=== PATIENT | male | born 1960 | race Caucasian/White ===

== ENCOUNTER 2017-11-10 14:34 | Outpatient (CLI) | payer BC ==
--- NOTE | 2017-11-10 17:22 | XRAY Report ---
TWO VIEW CHEST: 11/10/2017 CLINICAL INDICATION: Productive cough, wheezing. COMPARISON: 07/25/2014 FINDINGS: Frontal and lateral views of the chest demonstrate a normal cardiac silhouette. The lungs are clear. No effusion or pneumothorax is present. IMPRESSION: NO EVIDENCE OF ACUTE CARDIOPULMONARY DISEASE. NO SIGNIFICANT INTERVAL CHANGE. TD: 11/10/2017 15:08
== END 2017-11-10 14:35 | disposition home or self-care (01) ==
LOC: DI.S 14:34
PROVIDERS: ATTEND Nurse Practitioner Family
DX: R05 Cough (principal); R06.2 Wheezing
CPT/HCPCS: 71046

== ENCOUNTER 2018-10-18 08:27 | Emergency (ER) | payer OTHER, BC ==
[2018-10-18] MEDS ORDERED: DEXAMETHASONE 10 MG/ML VIAL PO STA (08:59)
[2018-10-18] MEDS ORDERED: CHERRY SYRUP 10 ML UDC PO ONE (08:59)
[2018-10-18] MEDS ORDERED: KETOROLAC 60 MG/2 ML VIAL IM STA (09:00)
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
[2018-10-18 10:46] VITALS: BP 161/98
== END 2018-10-18 10:46 | disposition home or self-care (01) ==
LOC: ED 08:27
DX: M54.12 Radiculopathy, cervical region (principal); S00.81XA Abrasion of other part of head, initial encounter; S30.1XXA Contusion of abdominal wall, initial encounter; V43.62XA Car passenger injured in collision with other type car in traffic accident, initial encounter; Y92.410 Unspecified street and highway as the place of occurrence of the external cause
CPT/HCPCS: 96372; 99283; A9270

== ENCOUNTER 2019-04-13 09:37 | Outpatient (CLI) | payer BC ==
[~2019-04-13 09:37] MED LIST: ALBUTEROL NEB 2.5 MG/3 ML INH SCH
== END 2019-04-13 09:38 | disposition home or self-care (01) ==
LOC: RT 09:37
PROVIDERS: ATTEND Nurse Practitioner Family
DX: J44.9 Chronic obstructive pulmonary disease, unspecified (principal)
CPT/HCPCS: 94060; 94664

== ENCOUNTER 2019-07-01 02:37 | Emergency (ER) | payer BC ==
--- NOTE | 2019-07-01 02:47 | ED Physician Documentation ---
PD HPI SKIN - Stated complaint Stated Complaint: RASH - History obtained from History obtained from: Patient - History of Present Illness Timing - onset: How many days ago (2) Timing - duration: Days (2) Timing - details: Gradual onset (initially on finger and then hands, and now whole body, with some sores on back of throat/roof of mouth.), Still present Location: Bodywide Quality / character: Itchy, Painful. No: Draining Associated symptoms: Other (some mild nasal congestion and throat irritation. No fever.). No: Fever, Headache Contributing factors: Recent illness (minimal URI symptoms). No: Exposed to medication, Exposed to food Recently seen: Not recently seen Review of Systems Constitutional: denies: Fever, Chills Nose: reports: Rhinorrhea / runny nose. denies: Congestion Throat: reports: Sore throat Respiratory: denies: Cough GI: denies: Nausea, Vomiting, Diarrhea Neurologic: denies: Headache PD PAST MEDICAL HISTORY - Past Medical History Cardiovascular: Atrial fibrillation - Past Surgical History Past Surgical History: Yes HEENT: Cataracts - Present Medications Home Medications: Ambulatory Orders Medication Instructions Recorded Confirmed Docusate Sodium 250Mg Capsule 10/18/18 [Colace 250Mg Capsule] Hydrocodone/Acetaminophen 10/18/18 [Hydrocodone-Acetamin 7.5-325] Prednisone [Edwige] 2 mg PO 10/18/18 methocarbamoL [Robaxin] 10/18/18 Cetirizine [ZyrTEC] 10 mg PO BID #15 tablet 07/01/19 dexAMETHasone [Decadron] 4 mg PO DAILY #7 tablet 07/01/19 - Allergies Allergies/Adverse Reactions: Allergies Allergy/AdvReac Type Severity Reaction Status Date / Time No Known Drug Allergies Allergy Verified 07/01/19 02:50 - Social History Does the pt smoke?: No Smoking Status: Never smoker Does the pt drink ETOH?: No Does the pt have substance abuse?: Yes PD ED PE NORMAL - Vitals Vital signs reviewed: Yes - General General: Alert and oriented X 3, No acute distress, Well developed/nourished - HEENT HEENT: Ears normal. No: Pharynx benign (red spots on palatte and pharynx. Not on gums/lips. ) - Neck Neck: Supple, no meningeal sign, No adenopathy - Respiratory Respiratory: Clear bilaterally - Derm Derm: Normal color, Warm and dry, Other (red small bumps, firm without vesicles, with slight tenderness. Noted on fingers and palms, and some bodywide. ) - Neuro Neuro: Alert and oriented X 3, No motor deficit, Normal speech Results - Vitals Vitals: Vital Signs - 24 hr 07/01/19 02:40 Temperature 36.7 C Heart Rate 70 Respiratory 18 Rate Blood Pressure 149/86 H O2 Saturation 98 Oxygen O2 Source Room air PD MEDICAL DECISION MAKING - ED course Complexity details: considered differential (allergic reaction vs viral HFM. Less likely contact dermatitis, given widespread and also oral lesions.), d/w patient Departure - Departure Disposition: Home, Self Care Clinical Impression: Maculopapular rash, generalized Condition: Stable Record reviewed to determine appropriate education?: Yes Instructions: ED Allergic Reaction General Other Follow-Up: GUERO LOERA ARNP [Primary Care Provider] - Prescriptions: Cetirizine [ZyrTEC] 10 mg PO BID #15 tablet dexAMETHasone [Decadron] 4 mg PO DAILY #7 tablet Comments: Presume this is an allergic reaction to some trigger. Use the Decadron steroid and cetirizine antihistamine as directed for a week. Add Benadryl 25 to 50 mg every 6 hours if needed for itchiness and rash. I would anticipate this improving over the next 2 to 3 days. Consider the possibility it might be a viral rash. One that will give a rash like this, including your mouth, is qgoe-dtgh-ann-mouth disease. This is a regular viral illness and the rash is associated with it and lasts about 3 to 5 days. It would be treated similarly with the steroid and antihistamine as well as some Tylenol or ibuprofen if needed for tenderness.
[2019-07-01 02:50] VITALS: BP 149/86
[2019-07-01] MEDS ORDERED: CETIRIZINE 10 MG TABLET PO STA (02:59)
[2019-07-01] MEDS ORDERED: CHERRY SYRUP 10 ML UDC PO ONE (02:59)
[2019-07-01] MEDS ORDERED: DEXAMETHASONE 10 MG/ML VIAL PO STA (02:59)
== END 2019-07-01 03:10 | disposition home or self-care (01) ==
LOC: ED 02:37
DX: R21 Rash and other nonspecific skin eruption (principal)
CPT/HCPCS: 99282; 99284; A9270

== ENCOUNTER 2019-08-19 05:34 | Emergency (ER) | payer BC ==
[2019-08-19 05:44] VITALS: BP 141/72
[2019-08-19 06:00] LABS: RAPID STREP SCREEN Negative (Negative)
--- NOTE | 2019-08-19 06:01 | ED Physician Documentation ---
History of Present Illness - Stated complaint Stated Complaint: BODY ACHES/SORE THROAT - Chief complaint Chief Complaint: General - Additonal information Additional information: Patient comes emergency department complaining of body aches, cough, sore throat, and runny nose for the last day and a half. Patient states that he began to feel slightly symptomatic yesterday morning, but overnight, he began to feel worse. Patient states that his entire body hurts. He denies any fevers. No vomiting. No nausea. No diarrhea.. Patient states that many people at [facility], where the patient works, have upper respiratory type illnesses. He states thatHe does not feel short of breath and does not have chest pain. No abdominal pain. He is not coughing up anything. No other complaints at this time. He does note that his [id number] in [facility] has coronavirus, but that she is not very ill with it and he has not had any contact with her or any other family members who have been around her since she has been ill. Review of Systems Ten Systems: 10 systems reviewed and negative Constitutional: reports: Myalgias Eyes: reports: Reviewed and negative Ears: reports: Reviewed and negative Nose: reports: Rhinorrhea / runny nose, Congestion Throat: reports: Reviewed and negative Cardiac: reports: Reviewed and negative Respiratory: reports: Cough GI: reports: Reviewed and negative : reports: Reviewed and negative Skin: reports: Reviewed and negative Musculoskeletal: reports: Reviewed and negative Neurologic: reports: Reviewed and negative Psychiatric: reports: Reviewed and negative Endocrine: reports: Reviewed and negative Immunocompromised: reports: Reviewed and negative PD PAST MEDICAL HISTORY - Past Medical History Past Medical History: Yes Cardiovascular: Atrial fibrillation Respiratory: Other Other Past Medical History: Paralysis of the diaphragm - Past Surgical History Past Surgical History: Yes Ortho: Carpal Tunnel surgery, Other Cardiovascular: Other HEENT: Cataracts - Present Medications Home Medications: Ambulatory Orders Medication Instructions Recorded Confirmed No Known Home Medications 08/19/19 08/19/19 - Allergies Allergies/Adverse Reactions: Allergies Allergy/AdvReac Type Severity Reaction Status Date / Time No Known Drug Allergies Allergy Verified 08/19/19 05:44 - Social History Does the pt smoke?: No Smoking Status: Never smoker Does the pt drink ETOH?: No Does the pt have substance abuse?: No - Immunizations Immunizations are current?: Yes - POLST Patient has POLST: No PD ED PE NORMAL - Vitals Vital signs reviewed: Yes - General General: Alert and oriented X 3, No acute distress - HEENT HEENT: Atraumatic, PERRL, EOMI, Moist mucous membranes, Pharynx benign - Neck Neck: Supple, no meningeal sign - Cardiac Cardiac: RRR, No murmur - Respiratory Respiratory: No respiratory distress, Clear bilaterally - Abdomen Abdomen: Soft, Non tender, Non distended - Derm Derm: Normal color, Warm and dry, No rash - Extremities Extremities: No deformity - Neuro Neuro: Alert and oriented X 3, 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, No motor deficit, No sensory deficit, Normal speech - Psych Psych: Normal mood, Normal affect Results - Vitals Vitals: Vital Signs - 24 hr 08/19/19 05:35 Temperature 37.2 C Heart Rate 93 Respiratory 16 Rate Blood Pressure 141/72 H O2 Saturation 97 Oxygen O2 Source Room air - Labs Labs: Laboratory Tests 08/19/19 08/19/19 05:45 05:45 Influenza A (Rapid) Negative Influenza B (Rapid) Negative Group A Strep Rapid Negative PD MEDICAL DECISION MAKING - ED course Complexity details: reviewed results, re-evaluated patient, considered differential, d/w patient ED course: Patient was worked up with influenza testing in the emergency department.This was negative. I have given the patient a work note for the next couple of days. We have discussed home management and symptoms as well as usual indications for return. Departure - Departure Disposition: 01 Home, Self Care Clinical Impression: Viral syndrome Condition: Fair Instructions: ED Viral Syndrome Comments: Your influenza test is negative, as is your strep test. Most likely, you have 1 of the many viruses that are going around right now causing body aches, congestion, and sore throat. You may take Tylenol and ibuprofen on an as-needed basis to help with the body aches and any fever she may develop. Please be sure to get plenty of fluids and rest and eat nutritious food. Forms: Activity restrictions Discharge Date/Time: 08/19/19 06:18
== END 2019-08-19 06:18 | disposition home or self-care (01) ==
LOC: ED 05:34
DX: B34.9 Viral infection, unspecified (principal)
CPT/HCPCS: 87070; 87077; 87275; 87276; 87430; 99283; 99284

== ENCOUNTER 2019-10-17 17:54 | Outpatient (CLI) | payer BC | END 2019-10-17 17:55 | disposition home or self-care (01) | LOC: COV 17:54 | PROVIDERS: ATTEND Family Medicine | DX: M79.10 Myalgia, unspecified site (principal); R53.83 Other fatigue; J02.9 Acute pharyngitis, unspecified | CPT/HCPCS: 81599 ==

== ENCOUNTER 2020-06-11 21:49 | Outpatient (CLI) | payer BC | END 2020-06-11 23:59 | disposition critical access hospital (66) | LOC: EMS 21:49 | PROVIDERS: ATTEND Surgery | DX: R00.0 Tachycardia, unspecified (principal); R42 Dizziness and giddiness; R61 Generalized hyperhidrosis; R07.9 Chest pain, unspecified | CPT/HCPCS: A0425; A0427 ==

== ENCOUNTER 2020-06-11 22:11 | Emergency (ER) | payer BC ==
--- NOTE | 2020-06-11 22:18 | ED Physician Documentation ---
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 He underwent ablation 10 years ago, has had few episodes since then. Denies chest pain, dyspnea. He has mild lightheadedness with ambulation. Review of Systems Constitutional: denies: Fever, Chills, Sweats Cardiac: reports: Palpitations. denies: Chest pain / pressure, Pedal edema, Calf pain Respiratory: reports: Reviewed and negative GI: reports: Reviewed and negative Musculoskeletal: reports: Reviewed and negative Neurologic: denies: Generalized weakness, Focal weakness, Numbness, Headache PD PAST MEDICAL HISTORY - Past Medical History Cardiovascular: Atrial fibrillation Respiratory: Other - Past Surgical History Past Surgical History: Yes Ortho: Carpal Tunnel surgery, Other Cardiovascular: Other HEENT: Cataracts - Present Medications Home Medications: Ambulatory Orders Medication Instructions Recorded Confirmed No Known Home Medications 08/19/19 06/11/20 - Allergies Allergies/Adverse Reactions: Allergies Allergy/AdvReac Type Severity Reaction Status Date / Time No Known Drug Allergies Allergy Verified 06/11/20 22:22 - Social History Does the pt smoke?: No Smoking Status: Never smoker Does the pt drink ETOH?: No Does the pt have substance abuse?: No - Immunizations Immunizations are current?: Yes - POLST Patient has POLST: No PD ED PE NORMAL - Vitals Vital signs reviewed: Yes - General General: Alert and oriented X 3, No acute distress, Well developed/nourished - Neck Neck: Supple, no meningeal sign - Cardiac Cardiac: No murmur - Respiratory Respiratory: No respiratory distress, Clear bilaterally - Abdomen Abdomen: Soft, Non tender - Derm Derm: Normal color, Warm and dry - Extremities Extremities: No edema PD ED PE EXPANDED - Cardiac Cardiac: Tachy, Irregularly irregular Results - Vitals Vitals: Vital Signs - 24 hr 06/11/20 06/11/20 06/11/20 22:17 22:45 22:52 Temperature 36.7 C Heart Rate 140 H 146 H 125 H Respiratory 21 12 Rate Blood Pressure 105/81 H 107/87 H 103/85 H O2 Saturation 97 98 06/11/20 06/11/20 06/11/20 22:57 23:02 23:07 Temperature Heart Rate 107 H 106 H 117 H Respiratory 16 18 Rate Blood Pressure 104/66 123/103 H 103/70 O2 Saturation 99 99 06/11/20 06/11/20 06/11/20 23:22 23:37 23:50 Temperature Heart Rate 124 H 119 H 127 H Respiratory 16 13 Rate Blood Pressure 113/68 109/87 H 111/77 O2 Saturation 100 97 06/12/20 06/12/20 06/12/20 00:00 00:05 00:10 Temperature 36.7 C Heart Rate 92 82 86 Respiratory 16 16 Rate Blood Pressure 104/72 105/76 97/66 O2 Saturation 98 99 06/12/20 06/12/20 06/12/20 00:25 00:30 00:40 Temperature Heart Rate 91 101 H 102 H Respiratory 14 20 12 Rate Blood Pressure 91/74 132/76 H 94/79 O2 Saturation 100 99 100 06/12/20 06/12/20 06/12/20 00:43 00:49 00:52 Temperature Heart Rate 107 H 73 72 Respiratory 12 14 15 Rate Blood Pressure 98/64 103/69 102/78 O2 Saturation 96 98 98 06/12/20 06/12/20 06/12/20 00:56 01:00 01:17 Temperature 36.6 C Heart Rate 77 72 110 H Respiratory 17 15 25 H Rate Blood Pressure 105/78 107/81 H O2 Saturation 98 95 06/12/20 01:28 Temperature 36.4 C L Heart Rate 67 Respiratory 15 Rate Blood Pressure 103/78 O2 Saturation 100 Oxygen O2 Source Room air - EKG (time done) No standard instances Rate: Rate (enter#) (143) Rhythm: Atrial fibrillation QRS: LVH - Labs Labs: Laboratory Tests 06/11/20 06/11/20 06/11/20 22:53 22:53 22:53 WBC 8.0 RBC 5.50 Hgb 15.7 Hct 48.0 MCV 87.3 MCH 28.5 MCHC 32.7 RDW 13.3 Plt Count 205 MPV 9.9 Neut # (Auto) 5.2 Lymph # (Auto) 1.9 [place] # (Auto) 0.7 Eos # (Auto) 0.2 Baso # (Auto) 0.1 Absolute Nucleated RBC 0.00 Nucleated RBC % 0.0 PT 12.6 INR 1.1 APTT 30.3 Sodium 139 Potassium 3.6 Chloride 105 Carbon Dioxide 25 Anion Gap 9.0 BUN 25 H Creatinine 0.8 Estimated GFR (MDRD) 99 Glucose 128 H Calcium 8.9 Total Bilirubin 0.6 AST 15 ALT 22 Alkaline Phosphatase 54 Total Protein 7.2 Albumin 4.4 Globulin 2.8 Albumin/Globulin Ratio 1.6 Lipase 19 L TSH 06/11/20 22:53 WBC RBC Hgb Hct MCV MCH MCHC RDW Plt Count MPV Neut # (Auto) Lymph # (Auto) [place] # (Auto) Eos # (Auto) Baso # (Auto) Absolute Nucleated RBC Nucleated RBC % PT INR APTT Sodium Potassium Chloride Carbon Dioxide Anion Gap BUN Creatinine Estimated GFR (MDRD) Glucose Calcium Total Bilirubin AST ALT Alkaline Phosphatase Total Protein Albumin Globulin Albumin/Globulin Ratio Lipase TSH 3.96 - Rads (name of study) chest xray Radiology: Prelim report reviewed, See rad report Procedures - Procedural sedation Sedation prep: Informed consent, Time out completed, PE performed, ASA 2 - mild disease, IV O2 monitor, RT present Sedation medications: morphine, propofol Patient status during sedation: Responds to verbal, Vitals remained stable, Maintained airway, Recovered uneventfully Sedation recovery: Recovered uneventfully Time in sedation (Minutes): 15 - Cardioversion 1 Indication: Other (atrial fibrillation) Risks, benefits, alternatives explained to: Pt Prep: IV, O2, environmental monitoring technician, Pulse ox, Airway equip Meds: Morphine, Propofol CS via: Pads, AP approach Sync: Biphasic, 100j Post cardioversion rhythm: A-fib Complications: No: Contact burn, Apnea, Hypotension Performed by: ED MD 2 Indication: Other (atrial fibrillation) Risks, benefits, alternatives explained to: Pt Prep: IV, O2, environmental monitoring technician, Pulse ox, Airway equip Meds: Morphine, Propofol CS via: Pads, AP approach Sync: 200j Post cardioversion rhythm: NSR Complications: No: Contact burn, Apnea, Hypotension Performed by: ED MD PD MEDICAL DECISION MAKING - ED course Complexity details: reviewed results, re-evaluated patient, considered differential, d/w patient ED course: after two IV doses of cardizem (15mg followed by 20mg), rate control was achieved but patient remained in atrial fibrillation. Options were discussed; specifically, electrocardioversion, chemical cardioversion (such as procainamide), or prescription for PO rate-controlling medication (such as metoprolol or cardizem) and rx for anticoagulant such as coumadin or NOAC. After discussion of risks/benefits to these options, patient elects for electrocardioversion which is my recommendation. He says he has been electrocardioverted in the past although he notes that he typically does not convert with less than 200J. First attempt did not result in NSR (100J), but second attempt (200J) converted to NSR. After further observation time for propofol to wear off, patient was AAOx3, asymptomatic, and comfortable with d/c home. 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
[2020-06-11] MEDS ORDERED: diltiaZEM INJ 5 MG/ML VIAL IVP STA ×2 (22:38→23:45)
[2020-06-11] MEDS ORDERED: SODIUM CHLORIDE 0.9% 500 ML IV STA (22:38)
[2020-06-11 22:59] LABS: BASOPHILS # (AUTO) 0.1 10^3/uL (0.0-0.1); BASOPHILS % (AUTO) 0.8 %; EOSINOPHILS # (AUTO) 0.2 10^3/uL (0.0-0.7); EOSINOPHILS % (AUTO) 2.6 %; HGB - HEMOGLOBIN 15.7 g/dL (14.0-18.0); LYMPHOCYTES # (AUTO) 1.9 10^3/uL (1.5-3.5); LYMPHOCYTES % (AUTO) 23.5 %; MEAN CORPUSCULAR HEMOGLOBIN 28.5 pg (27.0-31.0); MEAN CORPUSCULAR HGB CONC 32.7 g/dL (32.0-36.0); MEAN CORPUSCULAR VOLUME 87.3 fL (80.0-94.0); MEAN PLATELET VOLUME 9.9 fL (7.4-11.4); MONOCYTES # (AUTO) 0.7 10^3/uL (0.0-1.0); MONOCYTES % (AUTO) 8.1 %; NEUTROPHILS # (AUTO) 5.2 10^3/uL (1.5-6.6); NEUTROPHILS % (AUTO) 64.7 %; PLT - PLATELET COUNT 205 10^3/uL (130-450); RED CELL DISTRIBUTION WIDTH 13.3 % (12.0-15.0)
[2020-06-11 23:04] LABS: INR 1.1 (0.8-1.2); PT - PROTHROMBIN TIME 12.6 secs (9.9-12.6)
[2020-06-11 23:11] LABS: ALBUMIN 4.4 g/dL (3.2-5.5); ALBUMIN/GLOBULIN RATIO 1.6 (1.0-2.2); BILIRUBIN,TOTAL 0.6 mg/dL (0.2-1.0); CALCIUM 8.9 mg/dL (8.5-10.3); CREATININE 0.8 mg/dL (0.6-1.2); PARTIAL THROMBOPLASTIN TIME 30.3 secs (24.9-33.3); POTASSIUM 3.6 mmol/L (3.5-5.0); TOTAL PROTEIN 7.2 g/dL (6.7-8.2)
[2020-06-11] MEDS ORDERED: ONDANSETRON 4 MG/2 ML VIAL IVP STA (23:45)
[2020-06-12] MEDS ORDERED: PROPOFOL 200 MG/20 ML VIAL IVP STA (00:30)
[2020-06-12] MEDS ORDERED: SODIUM CHLORIDE 0.9% 1,000 ML IV STA (00:30)
[2020-06-12] MEDS ORDERED: MORPHINE 2 MG/ML CARPUJECT IVP STA (00:36)
[2020-06-12 01:30] VITALS: BP 103/78
--- NOTE | 2020-06-12 09:05 | XRAY Report ---
PROCEDURE: Chest 1 View X-Ray INDICATIONS: chest pain TECHNIQUE: One view of the chest was acquired. COMPARISON: 11/10/2017, 07/25/2014, 07/14/2013 FINDINGS: Surgical changes and devices: None. Lungs and pleura: No pleural effusions or pneumothorax. Elevation of the left hemidiaphragm can be seen. Presumed streaky atelectasis is seen at the left lung base. Mediastinum: Mediastinal contours appear normal. Heart size is normal. Bones and chest wall: No suspicious bony lesions. Age-appropriate degenerative changes are seen. S table focal bony irregularity can be seen involving the superior thoracic spine. Overlying soft tissu es appear unremarkable. IMPRESSION: Limited portable chest examination, without an acute abnormality identified. Stable focal bony irregularity can be seen involving the superior thoracic spine, as before. Note: No significant discrepancy from the preliminary report. Reviewed by: Shawn Carson MD on 06/12/2020 8:03 AM [place] Approved by: Shawn Carson MD on 06/12/2020 8:03 AM [facility] Station ID: [id number]
== END 2020-06-12 01:29 | disposition home or self-care (01) ==
LOC: EDUNIT# → ED 22:11
DX: I48.91 Unspecified atrial fibrillation (principal)
CPT/HCPCS: 80053; 83690; 84443; 85025; 85610; 85730; 92960; 93005; 94770; 99152

== ENCOUNTER 2020-08-02 21:39 | Outpatient (CLI) | payer BC | END 2020-08-02 21:40 | disposition EMS.NT | LOC: EMS 21:39 | DX: R07.9 Chest pain, unspecified (principal); R42 Dizziness and giddiness ==

== ENCOUNTER 2020-10-07 17:17 | Inpatient (IN) | payer BC ==
--- OUTSIDE RECORDS SUMMARY | 2020-10-07 17:20 | EXTERNAL MEDICAL SUMMARY RPT | Continuity of Care Document ---
:1960 Demographics Phone Unavailable Preferred Language Unknown Marital Status Unknown Adventist Affiliation Unknown Race Unknown Ethnic Group Unknown Author Organization [facility] Address [address] [id number] Phone Social History date description facility [phone]
--- OUTSIDE RECORDS SUMMARY | 2020-10-07 17:42 | EXTERNAL MEDICAL SUMMARY RPT | Continuity of Care Document ---
:1960 Demographics Phone Unavailable Preferred Language Unknown Marital Status Unknown Gnosticist Affiliation Unknown Race Unknown Ethnic Group Unknown Author Organization [facility] Address [address] [phone] Phone Social History date description facility [phone]
[2020-10-07] MEDS ORDERED: DEXAMETHASONE 10 MG/ML VIAL IV STA (17:58)
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
[2020-10-07 18:06] LABS: BASOPHILS % (AUTO) 0.2 %; EOSINOPHILS % (AUTO) 0.2 %; HCT - HEMATOCRIT 44.6 % (42.0-52.0); HGB - HEMOGLOBIN 15.1 g/dL (14.0-18.0); LYMPHOCYTES # (AUTO) 0.9 10^3/uL (1.5-3.5); LYMPHOCYTES % (AUTO) 19.7 %; MEAN CORPUSCULAR HEMOGLOBIN 28.7 pg (27.0-31.0); MEAN CORPUSCULAR HGB CONC 33.9 g/dL (32.0-36.0); MEAN CORPUSCULAR VOLUME 84.8 fL (80.0-94.0); MEAN PLATELET VOLUME 9.9 fL (7.4-11.4); MONOCYTES # (AUTO) 0.3 10^3/uL (0.0-1.0); MONOCYTES % (AUTO) 7.7 %; NEUTROPHILS # (AUTO) 3.1 10^3/uL (1.5-6.6); PLT - PLATELET COUNT 187 10^3/uL (130-450); RED BLOOD COUNT 5.26 10^6/uL (4.70-6.10); RED CELL DISTRIBUTION WIDTH 13.8 % (12.0-15.0); WHITE BLOOD COUNT 4.3 x10^3/uL (4.8-10.8)
[2020-10-07 18:07] LABS: SLIDE REVIEW? Indicated
[2020-10-07] MEDS ORDERED: SODIUM CHLORIDE 0.9% 1,000 ML IV STA (18:13)
--- NOTE | 2020-10-07 18:18 | XRAY Report ---
PROCEDURE: Chest 1 View X-Ray INDICATIONS: chest pain TECHNIQUE: One view of the chest was acquired. COMPARISON: Chest x-ray 06/11/2020 FINDINGS: Surgical changes and devices: None. Lungs and pleura: There are patchy areas of bilateral pulmonary opacity. Elevation of the left hemidi aphragm is present. Mediastinum: Mediastinal contours appear normal. Heart size is normal. Bones and chest wall: No suspicious bony lesions. Overlying soft tissues appear unremarkable. IMPRESSION: Bilateral pulmonary opacities most suggestive of pneumonia. Reviewed by: Danielle Mcdonald MD on 10/07/2020 5:17 PM CHARI Approved by: Danielle Mcdonald MD on 10/07/2020 5:17 PM CHARI Station ID: [id number]
[2020-10-07 18:20] LABS: ALBUMIN 3.9 g/dL (3.2-5.5); ALBUMIN/GLOBULIN RATIO 1.1 (1.0-2.2); BILIRUBIN,TOTAL 1.1 mg/dL (0.2-1.0); CALCIUM 8.4 mg/dL (8.5-10.3); CREATININE 0.7 mg/dL (0.6-1.2); POTASSIUM 3.6 mmol/L (3.5-5.0); TOTAL PROTEIN 7.4 g/dL (6.7-8.2)
[2020-10-07 18:27] LABS: PLATELET ESTIMATE, MANUAL NORMAL (130-450,000) (NORMAL); PLATELET MORPHOLOGY NORMAL APPEARANCE (NORMAL); RBC MORPHOLOGY (MULTIPLE) NORMAL APPEARANCE (NORMAL); WBC MORPHOLOGY (MULTIPLE) NORMAL APPEARANCE (NORMAL)
[2020-10-07] MEDS ORDERED: REMDESIVIR 100MG VIAL 200 MG in SODIUM CHLORIDE 0.9% 250 ML IV ONE (18:30)
[2020-10-07] MEDS ORDERED: cefTRIAXone 1 GM VIAL IVP STA (19:02)
[2020-10-07] MEDS ORDERED: AZITHROMYCIN INJ 500 MG in SODIUM CHLORIDE 0.9% 250 ML IV STA (19:02)
[2020-10-07] MEDS ORDERED: ACETAMINOPHEN 325 MG TABLET PO PRN (20:26)
[2020-10-07] MEDS ORDERED: ONDANSETRON ODT 4 MG TABLET TL PRN (20:26)
[2020-10-07] MEDS ORDERED: ONDANSETRON 4 MG/2 ML VIAL IVP PRN (20:26)
[2020-10-07] MEDS ORDERED: SODIUM CHLORIDE FLUSH 0.9% 10 ML SYRINGE IVP PRN (20:26)
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
--- OUTSIDE RECORDS SUMMARY | 2020-10-07 20:58 | EXTERNAL MEDICAL SUMMARY RPT | Continuity of Care Document ---
:1960 Demographics Phone Unavailable Preferred Language Unknown Marital Status Unknown Nondenominational Affiliation Unknown Race Unknown Ethnic Group Unknown Author Organization [place] Address [address] [phone] Phone Social History date description facility [phone]
[2020-10-07 21:15] LABS: CORONAVIRUS 229E-RESP PCR NOT DETECTED; CORONAVIRUS HKU1-RESP PCR NOT DETECTED; CORONAVIRUS NL63-RESP PCR NOT DETECTED; CORONAVIRUS OC43-RESP PCR NOT DETECTED
[2020-10-07 21:17] LABS: B. PARAPERTUSSIS- RESP PCR PAN NOT DETECTED; B. PERTUSSIS- RESP PCR PANEL NOT DETECTED; C. PNEUMONIAE- RESP PCR PANEL NOT DETECTED; HUMAN METAPNEUMOVIRUS NOT DETECTED; INFLUENZA A- RESP PCR PANEL NOT DETECTED; INFLUENZA B - RESP PCR PANEL NOT DETECTED; M. PNEUMONIAE- RESP PCR PANEL NOT DETECTED; PARAINFLUENZA VIRUS 1 NOT DETECTED; PARAINFLUENZA VIRUS 2 NOT DETECTED; PARAINFLUENZA VIRUS 3 NOT DETECTED; PARAINFLUENZA VIRUS 4 NOT DETECTED; RHINOVIRUS/ENTEROVIRUS NOT DETECTED; RSV- RESP PCR PANEL NOT DETECTED; SARS-CoV-2 -RESP PCR PANEL DETECTED
[2020-10-07] MEDS ORDERED: BENZONATATE 100 MG CAPSULE PO PRN (22:28)
[2020-10-08] MEDS: SODIUM CHLORIDE FLUSH 0.9% 10 ML SYRINGE IVP SCH ×3 (00:06→16:18)
[2020-10-08 00:24] LABS: BILIRUBIN,URINE NEGATIVE (NEGATIVE); GLUCOSE, URINE (UA) NEGATIVE (NEGATIVE); KETONES,URINE (UA) 15 mg/dL (NEGATIVE); LEUKOCYTE ESTERASE, URINE NEGATIVE (NEGATIVE); NITRITE,URINE NEGATIVE (NEGATIVE); OCCULT BLOOD,URINE NEGATIVE (NEGATIVE); PROTEIN,URINE 30 mg/dL (NEGATIVE); UROBILINOGEN,URINE >=8.0 E.U./dL (NORMAL)
[2020-10-08 00:32] LABS: CLARITY,URINE CLEAR (CLEAR)
[2020-10-08 00:39] LABS: BACTERIA,URINE Rare /HPF (None Seen); MUCUS,URINE Few Strands; RBC,URINE 0-5 /HPF (0-5); SQUAMOUS EPITHELIAL CELL,UR RARE Squamous (<= Few); WBC,URINE 0-3 /HPF (0-3)
[2020-10-08 05:32] LABS: HCT - HEMATOCRIT 42.4 % (42.0-52.0); HGB - HEMOGLOBIN 13.6 g/dL (14.0-18.0); MEAN CORPUSCULAR HEMOGLOBIN 27.9 pg (27.0-31.0); MEAN CORPUSCULAR HGB CONC 32.1 g/dL (32.0-36.0); MEAN CORPUSCULAR VOLUME 87.1 fL (80.0-94.0); MEAN PLATELET VOLUME 9.7 fL (7.4-11.4); MONOCYTES % (AUTO) 6.1 %; NEUTROPHILS % (AUTO) 71.5 %; PLT - PLATELET COUNT 192 10^3/uL (130-450); RED BLOOD COUNT 4.87 10^6/uL (4.70-6.10); RED CELL DISTRIBUTION WIDTH 13.6 % (12.0-15.0); WHITE BLOOD COUNT 2.5 x10^3/uL (4.8-10.8)
[2020-10-08 05:39] LABS: CREATININE 0.6 mg/dL (0.6-1.2); POTASSIUM 4.8 mmol/L (3.5-5.0)
[2020-10-08 05:47] LABS: ABNORMAL LYMPHS % (MANUAL) 0 %
[2020-10-08 06:08] LABS: BAND NEUTROPHILS % (MANUAL) 10 %; DIFFERENTIAL COMMENT MANUAL DIFFERENTIAL; LYMPHOCYTES # (MANUAL) 0.4 10^3/uL (1.5-3.5); LYMPHOCYTES % (MANUAL) 15 %; MONOCYTES # (MANUAL) 0.1 10^3/uL (0.0-1.0); PLATELET ESTIMATE, MANUAL NORMAL (130-450,000) (NORMAL); RBC MORPHOLOGY (MULTIPLE) NORMAL APPEARANCE (NORMAL)
[2020-10-08] MEDS: PANTOPRAZOLE 40 MG TABLET PO SCH (06:12)
[2020-10-08] MEDS: DEXAMETHASONE 10 MG/ML VIAL IVP SCH (08:46)
[2020-10-08] MEDS: ENOXAPARIN 40 MG/0.4 ML SYRINGE SUBQ SCH (08:46)
[2020-10-08] MEDS: polyethylene glycoL 3350 17 GM PACKET PO SCH (08:46)
[2020-10-08] MEDS: REMDESIVIR 100MG VIAL 100 MG in SODIUM CHLORIDE 0.9% 100ML 100 ML IV SCH (11:09)
--- NOTE | 2020-10-08 15:42 | PROVIDER PROGRESS NOTE ---
Assessment/Plan - Problem List (1) Acute respiratory failure with hypoxia Assessment/Plan: 10/08 pt has 95% on 1 lite of O2. pt is comfortable resting in the bed, without acute respiratory distress now. will continue remdesivir, Decadron, lovenox and continue with supplemental oxygen as needed now. pt was initiated empiric ceftriaxone and azithromycin, will continue, add probiotics (2) Pneumonia due to COVID-19 virus Conclusion/Plan: 10/08 pt is comfortable resting at bed, continue remdesivir, Decadron, lovenox and continue with supplemental oxygen as needed now (3) Epigastric discomfort Conclusion/Plan: 10/08 no complaints today, pt ate 75% diet and tolerated, no nausea or vomiting. (4) Paroxysmal atrial fibrillation Conclusion/Plan: 10/08 HR is stable, will resume home meds after pharmacy confirm - Current Meds Current Meds: Current Medications Generic Name Dose Route Start Last Admin Trade Name Freq PRN Reason Stop Dose Admin Dexamethasone 6 mg 10/08/20 09:00 10/08/20 08:46 Dexamethasone 10 Mg/Ml Vial IVP 10/16/20 09:01 6 mg DAILY WANDA Administration Enoxaparin Sodium 40 mg 10/08/20 09:00 10/08/20 08:46 Enoxaparin 40 Mg/0.4 Ml Syringe SUBQ 40 mg DAILY WANDA Administration Remdesivir 100 mg/ Sodium 100 mls @ 200 mls/hr 10/08/20 11:00 10/08/20 11:40 Chloride IV 10/11/20 09:29 Infused DAILY WANDA Infusion Pantoprazole Sodium 40 mg 10/08/20 07:00 10/08/20 06:12 Pantoprazole 40 Mg Tablet PO 40 mg QDAC WANDA Administration Polyethylene Glycol 17 gm 10/08/20 09:00 10/08/20 08:46 Polyethylene Glycol 3350 17 Gm Packet PO 17 gm DAILY WANDA Administration Sodium Chloride 10 ml 10/08/20 01:00 10/08/20 08:46 Sodium Chloride Flush 0.9% 10 Ml Syringe IVP 10 ml 0100,0900,1700 WANDA Administration - Lab Result Fish Bone Diagrams: 10/08/20 04:40 10/08/20 04:40 - Additional Planning My Orders: My Active Orders 10/08/20 Pharmacy Consult [CONS] Routine 10/08/20 11:00 Remdesivir 100Mg Vial [Veklury] 100 mg Sodium Chloride 0.9% 100Ml [Normal Saline 0.9% 100Ml] 100 ml IV DAILY 10/08/20 11:58 Nutrition Consult [CONS] Routine 10/08/20 17:00 Cholecalciferol [Vitamin D3] 50 mcg PO DAILY Saccharomyces Boulardii [Florastor] 250 mg PO BIDWM Subjective - Subjective Patient Reports: Feeling Better Objective Vital Signs: Vital Signs - 24 hr 10/07/20 10/07/20 10/07/20 17:45 18:00 19:00 Temperature 37.9 C Heart Rate 66 87 73 Heart Rate [ Brachial] Respiratory 26 H 18 14 Rate Blood Pressure 136/79 H 168/73 H Blood Pressure [Left Brachial artery] O2 Saturation 81 L 90 L 100 10/07/20 10/07/20 10/07/20 19:30 20:00 21:43 Temperature 36.8 C Heart Rate 99 96 Heart Rate [ 94 Brachial] Respiratory 18 18 23 Rate Blood Pressure 146/89 H 125/86 H Blood Pressure 136/82 H [Left Brachial artery] O2 Saturation 96 99 94 10/08/20 10/08/20 10/08/20 00:10 05:00 09:00 Temperature 36.7 C 36.6 C 36.7 C Heart Rate Heart Rate [ 95 78 80 Brachial] Respiratory 18 18 18 Rate Blood Pressure Blood Pressure 137/80 H 119/83 H 127/80 [Left Brachial artery] O2 Saturation 97 94 95 10/08/20 14:00 Temperature 36.8 C Heart Rate Heart Rate [ 87 Brachial] Respiratory 18 Rate Blood Pressure Blood Pressure 124/75 [Left Brachial artery] O2 Saturation 91 L Oxygen O2 Source Room air I&O (Last 24 Hrs): Intake and Output Totals x24h 10/06/20 10/07/20 10/08/20 23:59 23:59 23:59 Intake Total 1600 460 Output Total 350 Balance 1600 110 General: Alert, Oriented x3, Cooperative, No acute distress HEENT: Atraumatic Neck: Supple Lymphatic: no adenopathy Neuro: Alert, Non Focal, Oriented Times 3 Cardiovascular: Regular rate, Normal S1, Normal S2 Respiratory: Chest non-tender, No respiratory distress Abdomen: Normal bowel sounds, Soft, No tenderness Extremities: Normal pulses - Results Results: Laboratory Results WBC 2.5 x10^3/uL (4.8-10.8) L 10/08/20 04:40 RBC 4.87 10^6/uL (4.70-6.10) 10/08/20 04:40 Hgb 13.6 g/dL (14.0-18.0) L 10/08/20 04:40 Hct 42.4 % (42.0-52.0) 10/08/20 04:40 MCV 87.1 fL (80.0-94.0) 10/08/20 04:40 MCH 27.9 pg (27.0-31.0) 10/08/20 04:40 MCHC 32.1 g/dL (32.0-36.0) 10/08/20 04:40 RDW 13.6 % (12.0-15.0) 10/08/20 04:40 Plt Count 192 10^3/uL (130-450) 10/08/20 04:40 MPV 9.7 fL (7.4-11.4) 10/08/20 04:40 Neut # (Auto) Not Reportable 10/08/20 04:40 Lymph # (Auto) Not Reportable 10/08/20 04:40 [place] # (Auto) Not Reportable 10/08/20 04:40 Eos # (Auto) Not Reportable 10/08/20 04:40 Baso # (Auto) Not Reportable 10/08/20 04:40 Absolute Nucleated RBC Not Reportable 10/08/20 04:40 Total Counted 100 10/08/20 04:40 Band Neuts % (Manual) 10 % (0-10) 10/08/20 04:40 Abnorm Lymph % (Manual) 0 % 10/08/20 04:40 Nucleated RBC % Not Reportable 10/08/20 04:40 Neutrophils # (Manual) 2.0 10^3/uL (1.5-6.6) 10/08/20 04:40 Lymphocytes # (Manual) 0.4 10^3/uL (1.5-3.5) L 10/08/20 04:40 Monocytes # (Manual) 0.1 10^3/uL (0.0-1.0) 10/08/20 04:40 Eosinophils # (Manual) 0.0 10^3/uL (0-0.7) 10/08/20 04:40 Basophils # (Manual) 0.0 10^3/uL (0-0.1) 10/08/20 04:40 Differential Comment MANUAL DIFFERENTIAL 10/08/20 04:40 Manual Slide Review Indicated 10/07/20 18:00 WBC Morphology NORMAL APPEARANCE (NORMAL) 10/07/20 18:00 Platelet Estimate NORMAL (130-450,000) (NORMAL) 10/08/20 04:40 Platelet Morphology NORMAL APPEARANCE (NORMAL) 10/07/20 18:00 RBC Morph Micro Appear NORMAL APPEARANCE (NORMAL) 10/08/20 04:40 Sodium 137 mmol/L (135-145) 10/08/20 04:40 Potassium 4.8 mmol/L (3.5-5.0) 10/08/20 04:40 Chloride 100 mmol/L (101-111) L 10/08/20 04:40 Carbon Dioxide 29 mmol/L (21-32) 10/08/20 04:40 Anion Gap 8.0 (6-13) 10/08/20 04:40 BUN 20 mg/dL (6-20) 10/08/20 04:40 Creatinine 0.6 mg/dL (0.6-1.2) 10/08/20 04:40 Estimated GFR (MDRD) 137 (>89) 10/08/20 04:40 Glucose 158 mg/dL (70-100) H 10/08/20 04:40 Calcium 8.0 mg/dL (8.5-10.3) L 10/08/20 04:40 Total Bilirubin 1.1 mg/dL (0.2-1.0) H 10/07/20 18:00 AST 28 IU/L (10-42) 10/07/20 18:00 ALT 23 IU/L (10-60) 10/07/20 18:00 Alkaline Phosphatase 47 IU/L (42-121) 10/07/20 18:00 Total Protein 7.4 g/dL (6.7-8.2) 10/07/20 18:00 Albumin 3.9 g/dL (3.2-5.5) 10/07/20 18:00 Globulin 3.5 g/dL (2.1-4.2) 10/07/20 18:00 Albumin/Globulin Ratio 1.1 (1.0-2.2) 10/07/20 18:00 Lipase 20 U/L (22-51) L 10/07/20 18:00 Urine Color DARK YELLOW 10/08/20 00:00 Urine Clarity CLEAR (CLEAR) 10/08/20 00:00 Urine pH 7.0 PH (5.0-7.5) 10/08/20 00:00 Ur Specific [place] 1.025 (1.002-1.030) 10/08/20 00:00 Urine Protein 30 mg/dL (NEGATIVE) H 10/08/20 00:00 Urine Glucose (UA) NEGATIVE mg/dL (NEGATIVE) 10/08/20 00:00 Urine Ketones 15 mg/dL (NEGATIVE) H 10/08/20 00:00 Urine Occult Blood NEGATIVE (NEGATIVE) 10/08/20 00:00 Urine Nitrite NEGATIVE (NEGATIVE) 10/08/20 00:00 Urine Bilirubin NEGATIVE (NEGATIVE) 10/08/20 00:00 Urine Urobilinogen >=8.0 E.U./dL (NORMAL) H 10/08/20 00:00 Ur Leukocyte Esterase NEGATIVE (NEGATIVE) 10/08/20 00:00 Urine RBC 0-5 /HPF (0-5) 10/08/20 00:00 Urine WBC 0-3 /HPF (0-3) 10/08/20 00:00 Ur Squamous Epith Cells RARE Squamous (<= Few) 10/08/20 00:00 Urine Bacteria Rare /HPF (None Seen) 10/08/20 00:00 Urine Mucus Few Strands 10/08/20 00:00 Ur Microscopic Review INDICATED 10/08/20 00:00 Urine Culture Comments NOT INDICATED 10/08/20 00:00 Nasal Adenovirus (PCR) NOT DETECTED 10/07/20 20:22 Nasal B. parapertussis DNA (PCR) NOT DETECTED 10/07/20 20:22 Nasal Coronavir 229E PCR NOT DETECTED 10/07/20 20:22 Nasal Coronavir HKU1 PCR NOT DETECTED 10/07/20 20:22 Nasal Coronavir NL63 PCR NOT DETECTED 10/07/20 20:22 Nasal Coronavir OC43 PCR NOT DETECTED 10/07/20 20:22 Nasal Enterovir/Rhinovir PCR NOT DETECTED 10/07/20 20:22 Nasal Influenza B PCR NOT DETECTED 10/07/20 20:22 Nasal Influenza A PCR NOT DETECTED 10/07/20 20:22 Nasal Parainfluen 1 PCR NOT DETECTED 10/07/20 20:22 Nasal Parainfluen 2 PCR NOT DETECTED 10/07/20 20:22 Nasal Parainfluen 3 PCR NOT DETECTED 10/07/20 20:22 Nasal Parainfluen 4 PCR NOT DETECTED 10/07/20 20:22 Nasal RSV (PCR) NOT DETECTED 10/07/20 20:22 Nasal B.pertussis DNA PCR NOT DETECTED 10/07/20 20:22 Nasal C.pneumoniae (PCR) NOT DETECTED 10/07/20 20:22 [place] Human Metapneumo PCR NOT DETECTED 10/07/20 20:22 Nasal M.pneumoniae (PCR) NOT DETECTED 10/07/20 20:22 Nasal SARS-CoV-2 (PCR) DETECTED A 10/07/20 20:22 ABX Reporting Has patient been on IV antibiotics over the past 48 hours?: Yes Current Medications - Current Medications Current Medications: Active Medications Acetaminophen (Acetaminophen 325 Mg Tablet) 650 mg PO Q4HR PRN PRN Reason: Pain 1 to 4 Benzonatate (Benzonatate 100 Mg Capsule) 100 mg PO TID PRN PRN Reason: Cough Cholecalciferol (Cholecalciferol 25 Mcg Tablet) 50 mcg PO DAILY [facility] Dexamethasone (Dexamethasone 10 Mg/Ml Vial) 6 mg IVP DAILY [facility] Stop: 10/16/20 09:01 Last Admin: 10/08/20 08:46 Dose: 6 mg Documented by: Enoxaparin Sodium (Enoxaparin 40 Mg/0.4 Ml Syringe) 40 mg SUBQ DAILY [facility] Last Admin: 10/08/20 08:46 Dose: 40 mg Documented by: Azithromycin 500 mg/ Sodium (Chloride) 250 mls @ 250 mls/hr IV 2100 [facility] Stop: 10/09/20 21:59 Ceftriaxone Sodium 1 gm/ (Sodium Chloride) 100 mls @ 200 mls/hr IV 2000 [facility] Stop: 10/11/20 20:29 Remdesivir 100 mg/ Sodium (Chloride) 100 mls @ 200 mls/hr IV DAILY [facility] Stop: 10/11/20 09:29 Last Infusion: 10/08/20 11:40 Dose: Infused Documented by: Ondansetron HCl (Ondansetron 4 Mg/2 Ml Vial) 4 mg IVP Q6HR PRN PRN Reason: Nausea / Vomiting Ondansetron HCl (Ondansetron Odt 4 Mg Tablet) 4 mg TL Q6HR PRN PRN Reason: Nausea / Vomiting Pantoprazole Sodium (Pantoprazole 40 Mg Tablet) 40 mg PO QDAC [facility] Last Admin: 10/08/20 06:12 Dose: 40 mg Documented by: Polyethylene Glycol (Polyethylene Glycol 3350 17 Gm Packet) 17 gm PO DAILY [facility] Last Admin: 10/08/20 08:46 Dose: 17 gm Documented by: Saccharomyces Boulardii (Saccharomyces Boulardii 250 Mg Capsule) 250 mg PO BIDWM [facility] Sodium Chloride (Sodium Chloride Flush 0.9% 10 Ml Syringe) 10 ml IVP PRN PRN PRN Reason: NEEDED PER PROVIDER ORDERS Sodium Chloride (Sodium Chloride Flush 0.9% 10 Ml Syringe) 10 ml IVP 0100,0900,1700 [facility] Last Admin: 10/08/20 08:46 Dose: 10 ml Documented by: Dicyclomine [Bentyl] 20 mg PO QID PRN 10/08/20 Metoprolol Succinate [Toprol Xl] 25 mg PO DAILY 10/08/20 Ondansetron Odt [Zofran Odt] 4 mg PO Q4H PRN 10/08/20 Rivaroxaban [Xarelto] 20 mg PO DAILY 10/08/20
[2020-10-08] MEDS: SACCHAROMYCES BOULARDII 250 MG CAPSULE PO SCH (16:18)
[2020-10-08] MEDS: CHOLECALCIFEROL 25 MCG TABLET PO SCH (16:18)
[2020-10-08] MEDS ORDERED: cefTRIAXone 1 GM in SODIUM CHLORIDE 0.9% MINIBAG 100 ML IV SCH (20:00)
[2020-10-08] MEDS ORDERED: AZITHROMYCIN INJ 500 MG in SODIUM CHLORIDE 0.9% 250 ML IV SCH (21:00)
[2020-10-09] MEDS: SODIUM CHLORIDE FLUSH 0.9% 10 ML SYRINGE IVP SCH ×2 (01:22→09:48)
[2020-10-09 05:20] LABS: BASOPHILS % (AUTO) 0.2 %; HCT - HEMATOCRIT 38.8 % (42.0-52.0); HGB - HEMOGLOBIN 12.9 g/dL (14.0-18.0); LYMPHOCYTES % (AUTO) 16.4 %; MEAN CORPUSCULAR HEMOGLOBIN 28.5 pg (27.0-31.0); MEAN CORPUSCULAR HGB CONC 33.2 g/dL (32.0-36.0); MEAN CORPUSCULAR VOLUME 85.8 fL (80.0-94.0); MEAN PLATELET VOLUME 10.1 fL (7.4-11.4); MONOCYTES % (AUTO) 8.9 %; NEUTROPHILS % (AUTO) 74.2 %; PLT - PLATELET COUNT 222 10^3/uL (130-450); RED BLOOD COUNT 4.52 10^6/uL (4.70-6.10); RED CELL DISTRIBUTION WIDTH 13.6 % (12.0-15.0); WHITE BLOOD COUNT 5.7 x10^3/uL (4.8-10.8)
[2020-10-09 05:22] LABS: BAND NEUTROPHILS % (MANUAL) 0 %
[2020-10-09 05:35] LABS: ALBUMIN 3.4 g/dL (3.2-5.5); BILIRUBIN,DIRECT 0.2 mg/dL (0.1-0.5); BILIRUBIN,TOTAL 0.8 mg/dL (0.2-1.0); CALCIUM 8.3 mg/dL (8.5-10.3); CREATININE 0.6 mg/dL (0.6-1.2); POTASSIUM 3.8 mmol/L (3.5-5.0); TOTAL PROTEIN 6.6 g/dL (6.7-8.2)
[2020-10-09 05:41] LABS: ABNORMAL LYMPHS % (MANUAL) 3 %; DIFFERENTIAL COMMENT MANUAL DIFFERENTIAL; LYMPHOCYTES # (MANUAL) 0.7 10^3/uL (1.5-3.5); LYMPHOCYTES % (MANUAL) 9 %; MONOCYTES # (MANUAL) 0.6 10^3/uL (0.0-1.0); NEUTROPHILS # (MANUAL) 4.4 10^3/uL (1.5-6.6); PLATELET ESTIMATE, MANUAL NORMAL (130-450,000) (NORMAL); PLATELET MORPHOLOGY NORMAL APPEARANCE (NORMAL); RBC MORPHOLOGY (MULTIPLE) NORMAL APPEARANCE (NORMAL); WBC MORPHOLOGY (MULTIPLE) NORMAL APPEARANCE (NORMAL)
[2020-10-09] MEDS: PANTOPRAZOLE 40 MG TABLET PO SCH (07:04)
[2020-10-09] MEDS: SACCHAROMYCES BOULARDII 250 MG CAPSULE PO SCH (09:36)
[2020-10-09] MEDS: DEXAMETHASONE 10 MG/ML VIAL IVP SCH (09:37)
[2020-10-09] MEDS: CHOLECALCIFEROL 25 MCG TABLET PO SCH (09:37)
[2020-10-09] MEDS: ENOXAPARIN 40 MG/0.4 ML SYRINGE SUBQ SCH (09:37)
[2020-10-09] MEDS: polyethylene glycoL 3350 17 GM PACKET PO SCH (09:38)
[2020-10-09] MEDS: REMDESIVIR 100MG VIAL 100 MG in SODIUM CHLORIDE 0.9% 100ML 100 ML IV SCH (09:38)
--- NOTE | 2020-10-09 12:04 | PHARMACY PROGRESS NOTE ---
- Best Possible Medication History Admit Date and Time: 10/07/202025 Processed by: Pharmacy Medication History completed: Yes Secondary Source(s): Pharmacy records, Insurance records As the person ultimately responsible for medication therapy, providers are able to order a medication from an existing home medication list in [facility] via the "Reconcile Routine" prior to Confirmation of that medication by research support specialist. Such practice is discouraged except when the physician, in their clinical judgment, deems that a medical need exists for a medication without regard to previous use.
--- NOTE | 2020-10-09 12:15 | Discharge Plan ---
Discharge Plan Problem Reviewed?: Yes Disposition: Home, Self Care Condition: Stable Diet: Regular Activity Restrictions: Activity as Tolerated Shower Restrictions: No (fall precaution) Instruction Topics: COVID-19 [facility], COVID-19 [facility] Department Statement Health Concerns: Covid 19 Plan of Treatment: As your report, you have no respiratory distress for two days and you walked at your room without respiratory distress, you have stable O2 sats. RT did desats study for you, you have stable respiratory status. please followup [facility] guideline for isolation at your home. Care Goals: stabilization and improvement of your medical condition Assessment: discussed the care plan with you, answered your question, you agreed to be d/c home Additional Instructions or Follow Up instructions: You may followup with your PCP in 1-2 weeks. Should your symptoms return or worsen, you may present ER or call 911 for help. No Smoking: If you smoke, Please STOP! Call for help.
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
[2020-10-09 13:36] VITALS: BP 130/80
== END 2020-10-09 14:09 | disposition home or self-care (01) | DRG 177 ==
LOC: ED 17:17 → MS3 20:26
PROVIDERS: ADMIT Internal Medicine; ATTEND Internal Medicine
DX: U07.1 COVID-19 (principal); J12.82 Pneumonia due to coronavirus disease 2019; J96.01 Acute respiratory failure with hypoxia; I48.0 Paroxysmal atrial fibrillation; J44.9 Chronic obstructive pulmonary disease, unspecified; R10.13 Epigastric pain; J98.6 Disorders of diaphragm; V89.2XXS Person injured in unspecified motor-vehicle accident, traffic, sequela; Z98.890 Other specified postprocedural states; Z87.01 Personal history of pneumonia (recurrent); Z87.891 Personal history of nicotine dependence
CPT/HCPCS: 0202U; 36415; 71045; 80048; 80053; 80076; 81001; 83690; 85025; 87040; 94761; A9270; C9399; J1650; 81003; 87086; 96361; 96374; 99284

== ENCOUNTER 2020-12-22 17:00 | Outpatient (CLI) | payer BC ==
--- NOTE | 2020-12-23 08:53 | XRAY Report ---
PROCEDURE: Foot 3 View RT INDICATIONS: RIGHT FOOT PAIN TECHNIQUE: 3 views of the foot were acquired. COMPARISON: None FINDINGS: Bones: Mild to moderate hallux valgus is seen. Osteoarthritic changes are noted at first MTP joint a nd first through fifth interphalangeal joints. Well-defined plantar calcaneal enthesophyte is seen. N o fractures or dislocations. No suspicious bony lesions. Soft tissues: No tibiotalar joint effusion. Achilles tendon appears normal. IMPRESSION: No right foot fracture or dislocation. Mild to moderate hallux valgus with mild forefoot joint osteoa rthritis. Reviewed by: Diogenes Mcfarland MD on 12/23/2020 8:52 AM PDT Approved by: Diogenes Mcfarland MD on 12/23/2020 8:52 AM PDT Station ID: [id number]
== END 2020-12-22 17:01 | disposition home or self-care (01) ==
LOC: DI 17:00
PROVIDERS: ATTEND Podiatrist
DX: M79.671 Pain in right foot (principal); M19.071 Primary osteoarthritis, right ankle and foot; M20.11 Hallux valgus (acquired), right foot

== ENCOUNTER 2022-10-19 07:48 | Emergency (ER) | payer OTHER, BC ==
--- NOTE | 2022-10-19 08:01 | ED Physician Documentation ---
PD HPI ABD PAIN - Stated complaint Stated Complaint: GROIN/ABD PX - Chief complaint Chief Complaint: Abd Pain - History obtained from History obtained from: Patient - History of Present Illness Timing - onset: Yesterday Timing - duration: Days (1) Timing - details: Abrupt onset, Still present, Waxing and waning Quality: Aching, Pain Location: RLQ (inguinal area) Radiation: No: Lower back Improved by: Laying still Worsened by: Position (standing up, bending.) Associated symptoms: No: Nausea, Vomiting, Diarrhea Similar symptoms before: Has not had sx before Recently seen: Not recently seen Review of Systems GI: denies: Nausea, Vomiting, Constipation, Diarrhea : denies: Dysuria Skin: denies: Rash, Lesions PD PAST MEDICAL HISTORY - Past Medical History Past Medical History: Yes Cardiovascular: Atrial fibrillation Respiratory: Pneumonia, Other Neuro: None Endocrine/Autoimmune: None GI: None : None HEENT: None Psych: None Musculoskeletal: None Derm: None - Past Surgical History Past Surgical History: Yes Ortho: Carpal Tunnel surgery Cardiovascular: Other HEENT: Cataracts - Present Medications Home Medications: Ambulatory Orders Medication Instructions Recorded Confirmed No Known Home Medications 10/19/22 10/19/22 - Allergies Allergies/Adverse Reactions: Allergies Allergy/AdvReac Type Severity Reaction Status Date / Time No Known Drug Allergies Allergy Verified 10/19/22 07:52 - Social History Does the pt smoke?: No Smoking Status: Former smoker Does the pt drink ETOH?: No Does the pt have substance abuse?: No - Immunizations Immunizations are current?: Yes - POLST Patient has POLST: No PD ED PE NORMAL - Vitals Vital signs reviewed: Yes - General General: Alert and oriented X 3, No acute distress, Well developed/nourished - Abdomen Abdomen: Normal bowel sounds, Soft, Non distended, No organomegaly, Other (tender right inguinal area with fingertip size defect at inguinal canal. With stadning, there is palpable hernia mass that is tender but easily reducible. No scrotal mass nor swelling. ) Results - Vitals Vitals: Vital Signs - 24 hr 10/19/22 10/19/22 07:52 10:15 Temperature 36.4 C L Heart Rate 78 66 Respiratory 16 16 Rate Blood Pressure 126/74 133/80 H O2 Saturation 96 100 Oxygen O2 Source Room air - Rads (name of study) abd U/S limited male Relevant Findings:: Prelim report reviewed, Other (U/S tech report states fat containing hernia witohtu bowel. ) PD Medical Decision Making - ED course Complexity details: reviewed results, considered differential (abrupt new hernia with pain related to lifting at work. Clnically is hernia. U/S done to eval if any bowel involvement and confirmation for surgery. ), d/w patient ED course: discussed with patient the ideas of using briefs with small towel roll or such in the area to act as a "truss" to keep the degree of protrusion down. Referred to surgery. Described the ideas of incarceration, bowel obstruction as important events to return to ER for. Departure - Departure Disposition: 01 Home, Self Care Clinical Impression: Inguinal hernia Qualifiers: Obstruction and gangrene presence: without obstruction or gangrene Laterality: unilateral Recurrence: non-recurrent Qualified Code(s): K40.90 - Unilateral inguinal hernia, without obstruction or gangrene, not specified as recurrent Condition: Stable Instructions: ED Hernia Inguinal Follow-Up: Surgical Care [Provider Group] Hakan Swanson MD [Provider Admit Priv/Credential] - Comments: You do appear to have thin uncomplicated acute hernia at this time. Obviously its painful and does come out easily. Call the surgical office today for an appointment at their soonest available for follow-up. Your ultrasound did confirm the hernia which is just fat-containing at this point and does not seem to involve the intestine. No other obvious abnormality. This should set you up for the surgical evaluation regarding imaging and confirmation. Rest today in the next couple of days. No lifting, prolonged standing or walking, bending or ladders at work until follow-up with surgery, presumably next week. You can use anti-inflammatory such as ibuprofen or naproxen twice daily if needed for pains. I would suggest a daily stool softener such as docusate to have your stools be smooth and easy. Be aware of possibility of the hernia getting trapped and so return to the ER if you have significant increase in pain, local tenderness or firmness, unreducible hernia, or diffuse abdominal pain with vomiting. Forms: Activity restrictions Discharge Date/Time: 10/19/22 10:15
[2022-10-19 10:15] VITALS: BP 133/80
--- NOTE | 2022-10-19 11:34 | Ultrasound Report ---
PROCEDURE: Pelvic Limited or F/U INDICATIONS: right inguinal pain/lump acute TECHNIQUE: Real-time transabdominal scanning was performed of the right groin. COMPARISON: None. FINDINGS: Right inguinal hernia identified containing fat without bowel involvement. Fascial defect measures 2 cm. Cine clips shows at least a partial reducibility. IMPRESSION: Right inguinal hernia containing fat without bowel involvement Reviewed by: Rich Guzman MD on 10/19/2022 10:33 AM CHARI Approved by: Rich Guzman MD on 10/19/2022 10:33 AM [id number] Station ID: [id number]
== END 2022-10-19 10:15 | disposition home or self-care (01) ==
LOC: ED 07:48
DX: K40.90 Unilateral inguinal hernia, without obstruction or gangrene, not specified as recurrent (principal); Z87.891 Personal history of nicotine dependence
CPT/HCPCS: 99283; 99284

== ENCOUNTER 2022-10-27 12:26 | Emergency (ER) | payer BC ==
--- NOTE | 2022-10-27 13:36 | ED Physician Documentation ---
History of Present Illness - Stated complaint Stated Complaint: BACK PX - Chief complaint Chief Complaint: Back Pain - Additonal information Additional information: 62-year-old male presents to the emergency department for evaluation of acute left lower Back pain. States that he sometimes finds he has it when he needs to urinate and micturition improves it. No falls or trauma. Is not reproducible with movement. No fevers. No saddle anesthesia, no loss of bowel or bladder function. No history of cancer. No history of similar. He was seen in this emergency department a little more than a week ago and found to have a right inguinal hernia. He does have pending surgical referral. Patient denies dysuria. No hematuria. No known history of renal colic. Review of Systems Constitutional: denies: Fever, Chills Eyes: reports: Reviewed and negative Cardiac: reports: Reviewed and negative Respiratory: reports: Reviewed and negative GI: reports: Reviewed and negative Musculoskeletal: reports: Back pain Neurologic: reports: Reviewed and negative PD PAST MEDICAL HISTORY - Past Medical History Cardiovascular: Atrial fibrillation Respiratory: Pneumonia, Other Neuro: None Endocrine/Autoimmune: None GI: None : None HEENT: None Psych: None Musculoskeletal: None Derm: None - Past Surgical History Past Surgical History: Yes Ortho: Carpal Tunnel surgery Cardiovascular: Other HEENT: Cataracts - Present Medications Home Medications: Ambulatory Orders Medication Instructions Recorded Confirmed Tamsulosin [Flomax] 0.4 mg PO DAILY #14 cap 10/27/22 - Allergies Allergies/Adverse Reactions: Allergies Allergy/AdvReac Type Severity Reaction Status Date / Time No Known Drug Allergies Allergy Verified 10/19/22 07:52 - Social History Does the pt smoke?: No Smoking Status: Former smoker Does the pt drink ETOH?: No Does the pt have substance abuse?: No - Immunizations Immunizations are current?: Yes - POLST Patient has POLST: No PD ED PE NORMAL - General General: Alert and oriented X 3, No acute distress - HEENT HEENT: PERRL - Neck Neck: Supple, no meningeal sign - Cardiac Cardiac: RRR, No murmur - Respiratory Respiratory: No respiratory distress, Clear bilaterally - Abdomen Abdomen: Normal bowel sounds, Soft, Non tender - Back Back: No CVA TTP, No spinal TTP - Derm Derm: Normal color, Warm and dry - Extremities Extremities: No deformity - Neuro Neuro: Alert and oriented X 3 Eye Opening: Spontaneous Motor: Obeys Commands Verbal: Oriented GCS Score: 15 Results - Vitals Vitals: Vital Signs - 24 hr 10/27/22 13:03 Temperature 36.5 C Heart Rate 75 Respiratory 17 Rate Blood Pressure 145/79 H O2 Saturation 97 Oxygen O2 Source Room air - Labs Labs: Laboratory Tests 10/27/22 10/27/22 13:41 13:49 Sodium 140 Potassium 3.7 Chloride 101 Carbon Dioxide 28 Anion Gap 11.0 BUN 24 H Creatinine 0.9 Estimated GFR (MDRD) 85 L Glucose 104 H Calcium 8.6 Urine Color YELLOW Urine Clarity CLEAR Urine pH 6.0 Ur Specific [place] 1.025 Urine Protein NEGATIVE Urine Glucose (UA) NEGATIVE Urine Ketones 15 H Urine Occult Blood NEGATIVE Urine Nitrite NEGATIVE Urine Bilirubin NEGATIVE Urine Urobilinogen 2 H Ur Leukocyte Esterase NEGATIVE Ur Microscopic Review NOT INDICATED Urine Culture Comments NOT INDICATED - Rads (name of study) CT abd/pelvis wo Relevant Findings:: Final report received (No hydronephrosis or obstructing renal stone. 1 mm nonobstructing left lower pole renal stone. Mild diverticulosis without diverticulitis. Elevation of left hemidiaphragm. Penile prosthesis.) PD Medical Decision Making - ED course Complexity details: reviewed results, re-evaluated patient, considered differential, d/w patient ED course: 89 male comes to the emergency department for evaluation of acute left low back pain. He has had this now for several days. He reports that the pain gets worse when he feels the urge to micturate but it improves after micturition. He has no david dysuria or hematuria. No history of similar. He denies a history of prostate problems but sometimes states he does not have a strong urine stream. Here in the emergency department he appears remarkably well. I was unable to reproduce the low back pain on exam. He has a normal gait. With the urine Stewart associated symptoms I was suspicious for the possibility of ureteral colic. Therefore I did obtain a BMP evaluating for renal function and per my inter pretation no worrisome findings. Subsequently a noncontrast CT was completed. We do see a nonobstructing left lower renal pole calculus. There was nothing within the ureter and no findings of hydroureter or hydronephrosis. Subsequently I rediscussed the case with the patient. I discussed with the patient that kidney stones are not typically painful until they erupt into the ureter. But I felt that the symptoms associated with urination could be symptomatic for possible prostate concerns. We discussed the possible use of Flomax to address this and the patient would like a limited 2-week prescription to see if it helps. He is followed by urology at [facility] and will call them to discuss. Clinically he appears rather well. I do not believe this is musculoskeletal back pain. He has no findings of obstruction or infection. He will be discharged home in stable condition with usual emergent return precautions discussed Departure - Departure Disposition: Home, Self Care Clinical Impression: Left renal stone Left low back pain Qualifiers: Chronicity: acute Sciatica presence: without sciatica Qualified Code(s): M54.50 - Low back pain, unspecified Condition: Stable Record reviewed to determine appropriate education?: Yes Prescriptions: Tamsulosin [Flomax] 0.4 mg PO DAILY #14 cap Comments: Pietro you came to the emergency department today because you have been having some pain in the left lower part of your back. However were not able to reproduce it on exam and you seem to have a normal walk. You do report that this pain seems worse around the time you need to urinate and improves afterwards. We did do a basic chemistry panel which showed no worrisome find ings. Subsequently a CT of the abdomen was obtained. It does show a small left lower kidney stone. However kidney stones are not typically painful until they enter the ureter. There were no obvious stones in your ureter. You do describe sometimes that your urine stream is not forceful. Often prostate issues can cause similar symptoms. In order to help address the symptoms were maura start you on a medication called Flomax. You will take it once a day for several weeks. If you find that this improves your urinary symptoms and your pain I encourage you to discuss with your urologist if this is a medication that should be continued. Do not hesitate to return to the ER if you develop fevers, have worsening pain or uncontrolled vomiting. I know that you do not like to take medication though I encourage you to consider taking ibuprofen 600 mg with food once or twice daily or alternate with 500 mg of Tylenol.
[2022-10-27 13:55] LABS: BILIRUBIN,URINE NEGATIVE (NEGATIVE); GLUCOSE, URINE (UA) NEGATIVE (NEGATIVE); KETONES,URINE (UA) 15 mg/dL (NEGATIVE); LEUKOCYTE ESTERASE, URINE NEGATIVE (NEGATIVE); NITRITE,URINE NEGATIVE (NEGATIVE); OCCULT BLOOD,URINE NEGATIVE (NEGATIVE); PROTEIN,URINE NEGATIVE (NEGATIVE); UROBILINOGEN,URINE 2 E.U./dL (NORMAL)
[2022-10-27 13:56] LABS: CALCIUM 8.6 mg/dL (8.5-10.3); CREATININE 0.9 mg/dL (0.6-1.2); POTASSIUM 3.7 mmol/L (3.5-5.0)
[2022-10-27 13:57] LABS: CLARITY,URINE CLEAR (CLEAR)
--- NOTE | 2022-10-27 14:13 | CT Report ---
PROCEDURE: ABDOMEN/PELVIS WO INDICATIONS: ? ureter stone left side TECHNIQUE: Noncontrast 5 mm thick sections acquired from the diaphragms to the symphysis. 5 mm coronal and sagi ttal reformats were then performed. For radiation dose reduction, the following was used: automated exposure control, adjustment of mA and/or kV according to patient size. COMPARISON: None. FINDINGS: Image quality: Excellent. Lung bases and heart: Elevated left hemidiaphragm. Liver: No solid mass. Gallbladder and biliary tree: Contracted, within normal limits. No stones seen. Spleen: No splenomegaly. Pancreas: No pancreatic ductal dilation. Adrenals: No adrenal nodule. Kidneys and ureters: No hydronephrosis. No renal cystic lesion which requires follow up. No solid mas s. 1 mm left lower pole nonobstructing stone. Bowel and peritoneum: No bowel distension. No pathologic free fluid. Diverticulosis without evidence of diverticulitis. Lymph nodes: No central or retroperitoneal adenopathy. Vessels: No infrarenal aortic aneurysm. PELVIS Reproductive organs: Unremarkable. Bladder: No abnormal wall thickening, accounting for underdistension. Pelvic lymph nodes: No pelvic adenopathy by size criteria. Bones: No aggressive osseous abnormality. Other: No significant ventral or inguinal hernia. Penile prosthesis. IMPRESSION: 1. No hydronephrosis or obstructing renal stone. 2. 1 mm nonobstructing left lower pole renal stone. 3. Mild diverticulosis without evidence of diverticulitis. 4. No evidence of acute abdominal process. 5. Elevation of left hemidiaphragm. 6. Penile prosthesis. Reviewed by: Jagdish Saleh MD on 10/27/2022 2:12 PM PDT Approved by: Jagdish Saleh MD on 10/27/2022 2:12 PM PDT Station ID: [id number]
[2022-10-27] MEDS ORDERED: TAMSULOSIN 0.4 MG CAPSULE PO STA (14:26)
[2022-10-27 14:55] VITALS: BP 150/74
== END 2022-10-27 15:18 | disposition home or self-care (01) ==
LOC: ED 12:26
DX: N20.0 Calculus of kidney (principal); K57.30 Diverticulosis of large intestine without perforation or abscess without bleeding; R39.12 Poor urinary stream; K40.90 Unilateral inguinal hernia, without obstruction or gangrene, not specified as recurrent; Z87.891 Personal history of nicotine dependence; M54.50 Low back pain, unspecified
CPT/HCPCS: 36415; 74176; 80048; 81003; 99284; A9270; 81001; 87086

== ENCOUNTER 2022-11-01 15:02 | Outpatient (CLI) | payer BC ==
--- NOTE | 2022-11-01 17:53 | XRAY Report ---
PROCEDURE: Abdomen 1 View X-Ray INDICATIONS: RENAL STONE TECHNIQUE: One view of the abdomen acquired. COMPARISON: None. FINDINGS: Surgical changes and devices: None. Bowel: Bowel gas pattern is normal. Bowel gas obscures the kidneys. Soft tissues: No suspicious abdominal calcifications. Visualized solid organ contours appear normal in size. No renal stones identified. Bones: No suspicious bony lesions. IMPRESSION: No renal stones identified. Reviewed by: Jagdish Saleh MD on 11/01/2022 5:52 PM PDT Approved by: Jagdish Saleh MD on 11/01/2022 5:52 PM PDT Station ID: [id number]
== END 2022-11-01 15:03 | disposition home or self-care (01) ==
LOC: DI 15:02
PROVIDERS: ATTEND Urology
DX: Z09 Encounter for follow-up examination after completed treatment for conditions other than malignant neoplasm (principal); Z87.442 Personal history of urinary calculi

== ENCOUNTER 2023-06-15 15:49 | Emergency (ER) | payer BC ==
[2023-06-15] MEDS ORDERED: ONDANSETRON 4 MG/2 ML VIAL IVP STA (17:03)
[2023-06-15] MEDS ORDERED: SODIUM CHLORIDE 0.9% 1,000 ML IV ONE (17:03)
--- NOTE | 2023-06-15 17:07 | ED Physician Documentation ---
PD HPI NVD - Stated complaint Stated Complaint: CONGESTION,COUGH,N/V - Chief complaint Chief Complaint: Resp - History obtained from History obtained from: Patient, Family - History of Present Illness Timing - onset: How many days ago (4) Associated symptoms: Fever, Dizzy, Loss of appetite. No: Hematemesis Contributing factors: Sick contact - Additonal information Additional information: Patient with history of COPD and recurrent pneumonia says that he has been sick since Monday. Initially started with upper respiratory infection symptoms and has progressed to fevers, chills, generalized body aches. Patient says that since 2003 he has had pneumonia every single year around this time a year and this is what his previous pneumonia symptoms feel like. He is having cough with purulent mucus, he appears quite uncomfortable vomiting and diaphoretic upon initially meeting pt. he is not vaccinated against pneumonia. No longer smoking and denies any alcohol or drug use PD PAST MEDICAL HISTORY - Past Medical History Past Medical History: No Cardiovascular: Atrial fibrillation Respiratory: Pneumonia, Other Neuro: None Endocrine/Autoimmune: None GI: None : None HEENT: None Psych: None Musculoskeletal: None Derm: None - Past Surgical History Past Surgical History: Yes Ortho: Carpal Tunnel surgery Cardiovascular: Other HEENT: Cataracts - Present Medications Home Medications: Ambulatory Orders Medication Instructions Recorded Confirmed Tamsulosin [Flomax] 0.4 mg PO DAILY #14 cap 10/27/22 ONDANSETRON ODT Prepack 2 [ZOFRAN 4 mg TL Q8H 5 Days #20 tablet 06/15/23 ODT Prepack 2] - Allergies Allergies/Adverse Reactions: Allergies Allergy/AdvReac Type Severity Reaction Status Date / Time No Known Drug Allergies Allergy Verified 06/15/23 15:53 - Social History Does the pt smoke?: No Smoking Status: Never smoker Does the pt drink ETOH?: No Does the pt have substance abuse?: No - Immunizations Immunizations are current?: Yes - POLST Patient has POLST: No PD ED PE NORMAL - General General: Alert and oriented X 3 - Cardiac Cardiac: No murmur, Strong equal pulses - Respiratory Respiratory: No respiratory distress, Other (Mild wheezing to right lower lobe) - Derm Derm: Other (Diaphoretic) - Neuro Neuro: Alert and oriented X 3 - Psych Psych: Other (anxious) Results - Vitals Vitals: Vital Signs - 24 hr 06/15/23 06/15/23 06/15/23 15:53 16:56 17:41 Temperature 36.8 C Heart Rate 88 117 H 85 Respiratory 16 27 H 20 Rate Blood Pressure 150/89 H O2 Saturation 100 97 100 06/15/23 06/15/23 19:00 19:30 Temperature Heart Rate 80 83 Respiratory 18 20 Rate Blood Pressure 169/100 H 169/85 H O2 Saturation 97 98 Oxygen O2 Source Room air - Labs Labs: Laboratory Tests 06/15/23 06/15/23 06/15/23 17:20 17:20 17:20 WBC 5.6 RBC 5.87 Hgb 16.5 Hct 48.9 MCV 83.3 MCH 28.1 MCHC 33.7 RDW 13.4 Plt Count 182 MPV 10.0 Neut # (Auto) 4.1 Lymph # (Auto) 0.7 L [place] # (Auto) 0.6 Eos # (Auto) 0.2 Baso # (Auto) 0.0 Absolute Nucleated RBC 0.00 Nucleated RBC % 0.0 Sodium 135 Potassium 3.3 L Chloride 98 L Carbon Dioxide 26 Anion Gap 11.0 BUN 17 Creatinine 0.8 Estimated GFR (MDRD) 98 Glucose 143 H Calcium 9.3 Magnesium 1.6 L Total Bilirubin 1.3 H AST 14 ALT 12 Alkaline Phosphatase 68 Total Protein 7.8 Albumin 4.7 Globulin 3.1 Albumin/Globulin Ratio 1.5 Nasal Influenza B PCR NOT DETECTED Nasal Influenza A PCR NOT DETECTED Nasal RSV (PCR) NOT DETECTED Nasal SARS-CoV-2 (PCR) DETECTED A - Rads (name of study) chest xray Relevant Findings:: Final report received, EMP independent interpretation of test (Chest x-ray does not reveal any pneumonia no cardiomegaly no signs of pleural effusions overall unremarkable) PD Medical Decision Making - ED course ED course: Patient seen in the emergency department today for ongoing cough and concerns for pneumonia. Chest x-ray was complete which did not reveal pneumonia no cardiomegaly no pleural effusions. Overall patient's lung sounds are clear he was diaphoretic and vomiting upon initially arriving to the emergency department but upon my reevaluation patient appears to be significantly more comfortable after receiving IV fluids as well as Zofran. He is able to tolerate p.o.'s without any difficulty. He was found to be COVID-positive he was offered Paxlovid here in the emergency department and declined. Patient said that he has access to primary care provider if he changes his mind and was taught how to manage his symptoms at home. Safe for discharge at this time with his , Return precautions given. Departure - Departure Disposition: 01 Home, Self Care Clinical Impression: COVID, COVID-19 Condition: Fair Instructions: COVID-[address] [facility] Prescriptions: ONDANSETRON ODT Prepack 2 [ZOFRAN ODT Prepack 2] 4 mg TL Q8H 5 Days #20 tablet Comments: You tested positive for COVID here in the emergency department. We offered to start you on Paxlovid but you wanted to go ahead and continue with [id number] medications. As we discussed you can alternate between Tylenol ibuprofen for pain and discomfort as well as for your fevers. Make sure that you are drinking plenty of fluids and eating a well-balanced healthy diet avoiding over processed food as well as sugary foods to help your body and immune system with recovery. We have completed a chest x-ray which did not reveal any pneumonia. Please follow-up with your primary care provider if you decide to change your mind about initiating Paxlovid. Please come back to the emergency department if you start develop any worsening symptoms, shortness of breath, or any other worsening symptoms. Forms: PCP List Discharge Date/Time: 06/15/23 19:30
[2023-06-15 17:28] LABS: BASOPHILS % (AUTO) 0.2 %; EOSINOPHILS # (AUTO) 0.2 10^3/uL (0.0-0.7); EOSINOPHILS % (AUTO) 2.9 %; HCT - HEMATOCRIT 48.9 % (42.0-52.0); HGB - HEMOGLOBIN 16.5 g/dL (14.0-18.0); LYMPHOCYTES # (AUTO) 0.7 10^3/uL (1.5-3.5); LYMPHOCYTES % (AUTO) 12.6 %; MEAN CORPUSCULAR HEMOGLOBIN 28.1 pg (27.0-31.0); MEAN CORPUSCULAR HGB CONC 33.7 g/dL (32.0-36.0); MEAN CORPUSCULAR VOLUME 83.3 fL (80.0-94.0); MONOCYTES # (AUTO) 0.6 10^3/uL (0.0-1.0); MONOCYTES % (AUTO) 10.1 %; NEUTROPHILS # (AUTO) 4.1 10^3/uL (1.5-6.6); PLT - PLATELET COUNT 182 10^3/uL (130-450); RED BLOOD COUNT 5.87 10^6/uL (4.70-6.10); RED CELL DISTRIBUTION WIDTH 13.4 % (12.0-15.0); WHITE BLOOD COUNT 5.6 x10^3/uL (4.8-10.8)
--- NOTE | 2023-06-15 17:33 | XRAY Report ---
PROCEDURE: Chest 2V INDICATIONS: hx of recurrent PNA, fevers, cough TECHNIQUE: 2 views of the chest were acquired. COMPARISON: Chest x-ray, 09/29/2020. FINDINGS: Surgical changes and devices: None. Lungs and pleura: Chronic left hemidiaphragm elevation with volume loss in the left hemithorax. Ther e is a scarlike density in the left lower lung zone. No pleural effusions or pneumothorax. Lungs are clear. Mediastinum: Mediastinal contours appear normal. Heart size is normal. Bones and chest wall: No suspicious bony lesions. Overlying soft tissues appear unremarkable. IMPRESSION: 1. No acute cardiopulmonary process. 2. A scar like density in left lower lung zone. Reviewed by: Tesha Haines MD on 06/15/2023 5:31 PM PST Approved by: Tesha Haines MD on 06/15/2023 5:31 PM [facility] Station ID: [id number]
[2023-06-15 17:41] LABS: ALBUMIN 4.7 g/dL (3.2-5.5); ALBUMIN/GLOBULIN RATIO 1.5 (1.0-2.2); BILIRUBIN,TOTAL 1.3 mg/dL (0.2-1.0); CALCIUM 9.3 mg/dL (8.5-10.3); CREATININE 0.8 mg/dL (0.6-1.3); MAGNESIUM 1.6 mg/dL (1.7-2.3); POTASSIUM 3.3 mmol/L (3.5-4.5); TOTAL PROTEIN 7.8 g/dL (6.4-8.9)
[2023-06-15 18:48] LABS: INFLUENZA A- RESP PCR PANEL NOT DETECTED; SARS-CoV-2 -RESP PCR PANEL DETECTED
[2023-06-15 18:49] LABS: INFLUENZA B - RESP PCR PANEL NOT DETECTED; RSV- RESP PCR PANEL NOT DETECTED
[2023-06-15] MEDS ORDERED: ONDANSETRON ODT 4 MG Prepack 2 TL PRN (19:22)
[2023-06-15 19:34] VITALS: BP 169/85; O2SAT 98
== END 2023-06-15 19:30 | disposition home or self-care (01) ==
LOC: ED 15:49
DX: U07.1 COVID-19 (principal)
CPT/HCPCS: 36415; 80053; 83735; 85025; 87637; 96374; 99284

== ENCOUNTER 2023-06-17 13:49 | Outpatient (CLI) | payer BC | END 2023-06-17 23:59 | disposition critical access hospital (66) | LOC: EMS 13:49 | DX: U07.1 COVID-19 (principal); R11.2 Nausea with vomiting, unspecified | CPT/HCPCS: A0425; A0429 ==

== ENCOUNTER 2023-06-17 15:05 | Emergency (ER) | payer BC ==
[2023-06-17] MEDS ORDERED: SODIUM CHLORIDE 0.9% 1,000 ML IV ONE (15:34)
[2023-06-17 15:54] LABS: BASOPHILS % (AUTO) 0.1 %; HCT - HEMATOCRIT 45.5 % (42.0-52.0); HGB - HEMOGLOBIN 15.4 g/dL (14.0-18.0); LYMPHOCYTES # (AUTO) 0.9 10^3/uL (1.5-3.5); LYMPHOCYTES % (AUTO) 12.7 %; MEAN CORPUSCULAR HEMOGLOBIN 28.1 pg (27.0-31.0); MEAN CORPUSCULAR HGB CONC 33.8 g/dL (32.0-36.0); MEAN CORPUSCULAR VOLUME 82.9 fL (80.0-94.0); MEAN PLATELET VOLUME 9.7 fL (7.4-11.4); MONOCYTES # (AUTO) 0.5 10^3/uL (0.0-1.0); NEUTROPHILS # (AUTO) 5.4 10^3/uL (1.5-6.6); NEUTROPHILS % (AUTO) 78.9 %; PLT - PLATELET COUNT 179 10^3/uL (130-450); RED BLOOD COUNT 5.49 10^6/uL (4.70-6.10); RED CELL DISTRIBUTION WIDTH 13.1 % (12.0-15.0); WHITE BLOOD COUNT 6.8 x10^3/uL (4.8-10.8)
[2023-06-17] MEDS ORDERED: ONDANSETRON 4 MG/2 ML VIAL IVP STA (16:17)
[2023-06-17 16:19] LABS: ALBUMIN 4.2 g/dL (3.2-5.5); ALBUMIN/GLOBULIN RATIO 1.4 (1.0-2.2); ALKALINE PHOSPHATASE 59 IU/L (42-121); ALT ALANINE AMINOTRANSFERASE 10 IU/L (10-60); AST ASPARTATE AMINOTRANSFERASE 11 IU/L (10-42); BILIRUBIN,TOTAL 1.2 mg/dL (0.2-1.0); BUN - BLOOD UREA NITROGEN 17 mg/dL (6-20); CALCIUM 9.2 mg/dL (8.5-10.3); CARBON DIOXIDE - CO2 29 mmol/L (21-32); CHLORIDE 96 mmol/L (101-111); CREATININE 0.7 mg/dL (0.6-1.3); GFR - MDRD 114 (>89); GLUCOSE 113 mg/dL (74-104); MAGNESIUM 1.7 mg/dL (1.7-2.3); POTASSIUM 3.3 mmol/L (3.5-4.5); SODIUM 135 mmol/L (135-145); TOTAL PROTEIN 7.1 g/dL (6.4-8.9)
[2023-06-17] MEDS ORDERED: POTASSIUM CHLORIDE 20 MEQ TABLET PO STA (16:24)
[2023-06-17 16:28] LABS: LIPASE < 10 U/L (11-82)
--- NOTE | 2023-06-17 18:32 | ED Physician Documentation ---
PD HPI NVD - Stated complaint Stated Complaint: COVID+/NV ABD PX - Chief complaint Chief Complaint: Abd Pain - History obtained from History obtained from: Patient - Additonal information Additional information: 62-year-old male recently here for flulike symptoms and had up testing positive. He was sent home with some Zofran for his ongoing nausea. He said no one told him how to take the Zofran at home so he was swallowing it and is worried that it was not working well. Patient said that he has not been able to tolerate much fluid or food since he has been home and is feeling very deconditioned and weak. He denies any chest pain or shortness of breath he endorses some midepigastric pain that he reports is only there when he is vomiting. He feels like he is losing weight and is worried that he is not able to keep anything down. Denies any diarrhea. PD PAST MEDICAL HISTORY - Past Medical History Past Medical History: Yes Cardiovascular: None, Atrial fibrillation Respiratory: Pneumonia, Other Neuro: None Endocrine/Autoimmune: None GI: None : None HEENT: None Psych: None Musculoskeletal: None Derm: None - Past Surgical History Past Surgical History: Yes Ortho: Carpal Tunnel surgery Cardiovascular: Other HEENT: Cataracts - Present Medications Home Medications: Ambulatory Orders Medication Instructions Recorded Confirmed Tamsulosin [Flomax] 0.4 mg PO DAILY #14 cap 10/27/22 ONDANSETRON ODT Prepack 2 [ZOFRAN 4 mg TL Q8H 5 Days #20 tablet 06/15/23 ODT Prepack 2] - Allergies Allergies/Adverse Reactions: Allergies Allergy/AdvReac Type Severity Reaction Status Date / Time No Known Drug Allergies Allergy Verified 06/15/23 15:53 - Social History Does the pt smoke?: No Smoking Status: Never smoker Does the pt drink ETOH?: No Does the pt have substance abuse?: No - Immunizations Immunizations are current?: Yes - POLST Patient has POLST: No PD ED PE NORMAL - Vitals Vital signs reviewed: Yes - General General: Alert and oriented X 3 - Cardiac Cardiac: RRR, No murmur, Strong equal pulses - Respiratory Respiratory: No respiratory distress, Clear bilaterally - Abdomen Abdomen: Normal bowel sounds, Soft, Non tender, Non distended - Psych Psych: Normal mood Results - Vitals Vitals: Vital Signs - 24 hr 06/17/23 06/17/23 06/17/23 15:17 15:30 18:59 Temperature 36.7 C Heart Rate 90 77 88 Respiratory 15 18 14 Rate Blood Pressure 144/96 H 151/92 H 139/87 H O2 Saturation 100 97 98 Oxygen O2 Source Room air - Labs Labs: Laboratory Tests 06/17/23 06/17/23 15:50 15:50 WBC 6.8 RBC 5.49 Hgb 15.4 Hct 45.5 MCV 82.9 MCH 28.1 MCHC 33.8 RDW 13.1 Plt Count 179 MPV 9.7 Neut # (Auto) 5.4 Lymph # (Auto) 0.9 L [place] # (Auto) 0.5 Eos # (Auto) 0.0 Baso # (Auto) 0.0 Absolute Nucleated RBC 0.00 Nucleated RBC % 0.0 Sodium 135 Potassium 3.3 L Chloride 96 L Carbon Dioxide 29 Anion Gap 10.0 BUN 17 Creatinine 0.7 Estimated GFR (MDRD) 114 Glucose 113 H Calcium 9.2 Magnesium 1.7 Total Bilirubin 1.2 H AST 11 ALT 10 Alkaline Phosphatase 59 Total Protein 7.1 Albumin 4.2 Globulin 2.9 Albumin/Globulin Ratio 1.4 Lipase < 10 L PD Medical Decision Making - ED course ED course: 62-year-old male here for nausea vomiting. He was recently diagnosed with COVID seen in our emergency department a couple days ago. He has not had a Zofran prescription filled he has been taking the Zofran starter pack from the emergency department and said that he has been swallowing them instead of letting them dissolve in his mouth and says that he does not think they are working because of the way he was taking him. Labs were collected in the emergency department, CBC does not reveal any acute leukocytosis, chemistry does reveal a slightly low potassium of 3.3, no other acute electrolyte abnormalities or findings, no keshav negative lipase. Patient was monitored for a few hours in the emergency department he was given 1 L IV fluids due to his dehydration and persistent nausea and vomiting that he endorsed and was having at home. He has had no episodes of nausea or vomiting after receiving IV Zofran. P.o. trial was initiated and he was able to eat half a sandwich as well as crackers and juice without any difficulty. Patient feels more equipped to go home and understands how to take Zofran now and is going to follow-up with primary care provider as needed. He was given oral potassium for his mild hypokalemia. He was given strict return precautions all questions answered safe for discharge Departure - Departure Disposition: 01 Home, Self Care Clinical Impression: COVID-19 Nausea & vomiting Qualifiers: Vomiting type: unspecified Qualified Code(s): R11.2 - Nausea with vomiting, unspecified Condition: Good Instructions: ED Nausea Vomiting Comments: Thank you for trusting us with your care we have given you some IV fluids to replace her potassium and given you some IV Zofran for your nausea vomiting. Make sure that you are taking the Zofran as prescribed to put under your tongue or in your cheek and let it fully dissolve before eating and drinking. It usually takes 45 minutes to an hour for it to fully kick in. Continue to slowly ease back into eating and drinking as you are able to tolerate make sure that you are eating a healthy well-balanced diet and getting plenty of fluids. Please follow-up with your primary care provider within the normal your emergency department visit. Please come back to the emergency department if you are continuing to experience ongoing nausea and vomiting after taking Zofran correctly, fevers and chills that are lasting longer than 5 days, shortness of breath or chest pain Forms: PCP List Discharge Date/Time: 06/17/23 19:00
[2023-06-17] MEDS ORDERED: ONDANSETRON ODT 4 MG Prepack 2 TL PRN (18:34)
[2023-06-17 19:09] VITALS: BP 139/87; O2SAT 98
== END 2023-06-17 19:00 | disposition home or self-care (01) ==
LOC: EDUNIT# → ED 15:05
DX: U07.1 COVID-19 (principal); R11.2 Nausea with vomiting, unspecified; E86.0 Dehydration; E87.6 Hypokalemia
CPT/HCPCS: 36415; 80053; 83690; 83735; 85025; 96374; 99283; A9270

== ENCOUNTER 2024-01-21 07:59 | Emergency (ER) | payer SELFPAY ==
--- NOTE | 2024-01-21 08:18 | ED Physician Documentation ---
PD HPI ABD PAIN - Stated complaint Stated Complaint: RUQ ABD PX/BACK PX - Chief complaint Chief Complaint: Abd Pain - History obtained from History obtained from: Patient - History of Present Illness Timing - onset: How many days ago (6) Timing - duration: Days (6) Timing - details: Gradual onset, Still present, Waxing and waning Quality: Sharp, Pain Location: RUQ Radiation: Right flank Worsened by: Moving, Breathing. No: Eating, Palpation Associated symptoms: Nausea, Vomiting. No: Fever PD PAST MEDICAL HISTORY - Past Medical History Past Medical History: Yes Cardiovascular: None, Atrial fibrillation Respiratory: Pneumonia, Other Neuro: None Endocrine/Autoimmune: None GI: None : None HEENT: None Psych: None Musculoskeletal: None Derm: None - Past Surgical History Past Surgical History: Yes Ortho: Carpal Tunnel surgery Cardiovascular: Other HEENT: Cataracts - Present Medications Home Medications: Ambulatory Orders Medication Instructions Recorded Confirmed Tamsulosin [Flomax] 0.4 mg PO DAILY #14 cap 10/27/22 01/21/24 - Allergies Allergies/Adverse Reactions: Allergies Allergy/AdvReac Type Severity Reaction Status Date / Time No Known Drug Allergies Allergy Verified 01/21/24 08:10 - Social History Does the pt smoke?: No Smoking Status: Never smoker Does the pt drink ETOH?: No Does the pt have substance abuse?: No - Immunizations Immunizations are current?: Yes - POLST Patient has POLST: No PD ED PE NORMAL - Vitals Vital signs reviewed: Yes - General General: Alert and oriented X 3, Well developed/nourished - Cardiac Cardiac: RRR, No murmur - Respiratory Respiratory: Clear bilaterally - Abdomen Abdomen: Normal bowel sounds, Soft, Non distended, No organomegaly, Other (some tender right upper abd. No guarding. Not tender in muscles in flank. No rash nor sores. ) - Back Back: No CVA TTP - Derm Derm: Normal color, Warm and dry, No rash - Extremities Extremities: No tenderness to palpate, Normal ROM s pain, No edema, No calf tenderness / cord - Neuro Neuro: Alert and oriented X 3, No motor deficit, Normal speech Results - Vitals Vitals: Oxygen O2 Source Room air - Labs Labs: Laboratory Tests 01/21/24 01/21/24 01/21/24 08:20 08:20 08:20 WBC 6.8 RBC 5.68 Hgb 15.4 Hct 47.8 MCV 84.2 MCH 27.1 MCHC 32.2 RDW 14.4 Plt Count 182 MPV 10.0 Neut # (Auto) 5.0 Lymph # (Auto) 1.1 L Mcminn # (Auto) 0.7 Eos # (Auto) 0.1 Baso # (Auto) 0.0 Absolute Nucleated RBC 0.00 Nucleated RBC % 0.0 Sodium 138 Potassium 3.5 Chloride 99 L Carbon Dioxide 31 Anion Gap 8.0 BUN 18 Creatinine 0.8 Estimated GFR (MDRD) 97 Glucose 119 H Calcium 9.5 Magnesium 2.0 Total Bilirubin 1.0 AST 11 ALT 16 Alkaline Phosphatase 63 Total Protein 7.6 Albumin 4.2 Globulin 3.4 Albumin/Globulin Ratio 1.2 Lipase < 10 L - Rads (name of study) abd/pel CT Relevant Findings:: Prelim report reviewed (no acute process. ), EMP independent interpretation of test PD Medical Decision Making - ED course Complexity details: reviewed results (normal labs, UA, and CT scan. Consider muscular pain as sometimes worse with breathing or movement. Had been ill earlier in week with vomiting. May have strained deeper muscle. ), considered differential (He was not feeling well starting 6 days ago with weakness and headache less appetite and malaise. No cough or fevers. Had onset nausea and vomiting 4 to 5 days ago with several episodes. Improved nausea with small fluids and simple foods. Onset of right flank pain 3 days ago that has persisted.), d/w patient Departure - Departure Disposition: 01 Home, Self Care Clinical Impression: Acute flank pain, Viral syndrome Condition: Stable Record reviewed to determine appropriate education?: Yes Instructions: ED Flank Pain Uncertain Cause Follow-Up: Primary/Walk In [place] [Provider Group] Comments: Your CT scan does not show a structural/acute process causing the pain in that flank. No signs of kidney stones or kidney inflammation. Gallbladder pancreas and liver look okay. Lower lungs are normal in appearance. Consider the possibility of some diaphragmatic or deeper muscle strain related to the illness earlier in the week and vomiting. I cannot say for sure the cause of it but can eliminate other significant causes based on your testing and CT scan. At this point would try going at it with some anti-inflammatories. I wrote for meloxicam twice daily for the next 7 to 10 days. To that add Tylenol every 4-6 hours if needed for pain or hydrocodone/acetaminophen if needed for worse pain. Recheck if not improved steadily and resolved over 4 to 5 days. Return if worse or follow-up at the walk-in clinic etc. I sent your prescription to [facility] in [place]. I am prescribing a short course of narcotic pain medication for you. These are potentially dangerous and addictive medications that should be used carefully. These medications may constipate you. Take an [id number]-[id number] stool softener such as docusate twice daily with plenty of water while taking these medications. If you go 24 hours without a bowel movement, take [id number] MiraLAX, per package instructions. Do not drink or drive while taking these medications. If you received narcotic or sedating medications while in the emergency department do not drive for 24 hours. Store this medication in a safe, secure place and out of reach of children. It is a violation of federal law to give or sell this medication to another person or to use in a manner other than prescribed. The ED will not refill narcotic prescriptions, including prescriptions lost or stolen. You can dispose of unwanted medications at the [facility]'s office or at several pharmacies such as [facility]. Forms: PCP List Discharge Date/Time: 01/21/24 10:55
[2024-01-21 08:32] LABS: BASOPHILS % (AUTO) 0.4 %; EOSINOPHILS # (AUTO) 0.1 10^3/uL (0.0-0.7); EOSINOPHILS % (AUTO) 0.9 %; HCT - HEMATOCRIT 47.8 % (42.0-52.0); HGB - HEMOGLOBIN 15.4 g/dL (14.0-18.0); LYMPHOCYTES # (AUTO) 1.1 10^3/uL (1.5-3.5); LYMPHOCYTES % (AUTO) 15.4 %; MEAN CORPUSCULAR HEMOGLOBIN 27.1 pg (27.0-31.0); MEAN CORPUSCULAR HGB CONC 32.2 g/dL (32.0-36.0); MEAN CORPUSCULAR VOLUME 84.2 fL (80.0-94.0); MONOCYTES # (AUTO) 0.7 10^3/uL (0.0-1.0); MONOCYTES % (AUTO) 10.1 %; NEUTROPHILS % (AUTO) 72.9 %; PLT - PLATELET COUNT 182 10^3/uL (130-450); RED BLOOD COUNT 5.68 10^6/uL (4.70-6.10); RED CELL DISTRIBUTION WIDTH 14.4 % (12.0-15.0); WHITE BLOOD COUNT 6.8 x10^3/uL (4.8-10.8)
[2024-01-21] MEDS: KETOROLAC 15 MG/ML VIAL IVP STA (08:48)
[2024-01-21] MEDS: HYDROmorphone 1 MG/ML CARPUJECT IVP STA (08:48)
[2024-01-21 08:49] LABS: ALBUMIN 4.2 g/dL (3.2-5.5); ALBUMIN/GLOBULIN RATIO 1.2 (1.0-2.2); ALKALINE PHOSPHATASE 63 IU/L (42-121); ALT ALANINE AMINOTRANSFERASE 16 IU/L (10-60); AST ASPARTATE AMINOTRANSFERASE 11 IU/L (10-42); BUN - BLOOD UREA NITROGEN 18 mg/dL (6-20); CALCIUM 9.5 mg/dL (8.5-10.3); CARBON DIOXIDE - CO2 31 mmol/L (21-32); CHLORIDE 99 mmol/L (101-111); CREATININE 0.8 mg/dL (0.6-1.3); GFR - MDRD 97 (>89); GLUCOSE 119 mg/dL (74-104); LIPASE < 10 U/L (11-82); POTASSIUM 3.5 mmol/L (3.5-4.5); SODIUM 138 mmol/L (135-145); TOTAL PROTEIN 7.6 g/dL (6.4-8.9)
[2024-01-21] MEDS: SODIUM CHLORIDE 0.9% 1,000 ML IV STA (08:49)
[2024-01-21] MEDS ORDERED: iohexoL-300 100 ML VIAL ONE (08:54)
[2024-01-21] MEDS: ONDANSETRON 4 MG/2 ML VIAL IVP STA (09:18)
[2024-01-21] MEDS: iohexoL-300 100 ML VIAL IVP ONE (09:25)
--- NOTE | 2024-01-21 10:05 | CT Report ---
PROCEDURE: Abdomen/Pelvis W INDICATIONS: right flank/abd pain CONTRAST: 100ml omni 300 TECHNIQUE: After the administration of intravenous contrast, a CT scan of the abdomen and pelvis was performed. Images were recorded and evaluated at appropriate window settings. Reformats: coronal and sagittal. F or radiation dose reduction, the following was used: automated exposure control, adjustment of mA and /or kV according to patient size. COMPARISON: CT abdomen/pelvis 10/27/2022 FINDINGS: Image quality: Diagnostic. Lower chest: Low-density lesion is seen in the lower right posterior mediastinum, likely an enteric d uplication cyst or lymphatic malformation. Lung bases are clear. Elevation of the left hemidiaphragm is noted. Liver: No solid mass. Gallbladder: No radiopaque stones or wall thickening. Biliary tree: No intrahepatic or extrahepatic dilation, accounting for age. Spleen: No splenomegaly. Pancreas: No pancreatic ductal dilation. Adrenals: No adrenal nodule. Kidneys and ureters: No hydronephrosis. No renal cystic lesion which requires follow up. No solid mas s. Simple left renal cyst. 1 mm punctate calculus in the interval left kidney again seen. Stomach, bowel and peritoneum: No gastric or small bowel dilation. No abnormal wall thickening. No pa thologic free fluid. A few diverticula are seen in the colon without signs of acute diverticulitis. A ppendix not visualized, but no pericecal inflammatory changes are seen. Lymph nodes: No central or retroperitoneal adenopathy. Vessels: No infrarenal aortic aneurysm. Patent portal vein. PELVIS Reproductive organs: Penile prosthesis is noted with reservoir in the right lower quadrant of the abd omen comment previously in the left inguinal region. Prostate is enlarged. Bladder: No abnormal wall thickening, accounting for underdistention. Pelvic lymph nodes: No pelvic adenopathy by size criteria. Bones: No aggressive osseous abnormality. Degenerative changes are seen in the sacroiliac joints and spine. Mild sclerosis is seen surrounding the left sacral iliac joint. Other: No significant ventral or inguinal hernia. Mild varicose veins are noted in the anterior media l right upper thigh. Small fat-containing left inguinal hernia. Tiny fat-containing femoral hernia. IMPRESSION: 1.No acute abnormality identified in the abdomen or pelvis to account for the reported right-sided pa in. 2.Punctate 1 mm nonobstructing left renal calculus. 3.Colonic diverticulosis. 4.Prostatomegaly. Reviewed by: Bryon Beth MD on 01/21/2024 10:04 AM PDT Approved by: Bryon Beth MD on 01/21/2024 10:04 AM PDT Station ID: [id number]
[2024-01-21 10:56] VITALS: BP 132/84; O2SAT 100
== END 2024-01-21 10:55 | disposition home or self-care (01) ==
LOC: ED 07:59
DX: B34.9 Viral infection, unspecified (principal); R10.11 Right upper quadrant pain; I48.91 Unspecified atrial fibrillation; Z79.899 Other long term (current) drug therapy
CPT/HCPCS: 36415; 74177; 80053; 83690; 83735; 85025; 96374; 96375; 99283; 99284; J1170; Q9967